=== PATIENT | male | born 1955 | race Caucasian/White ===

== ENCOUNTER → 2022-06-13 | Outpatient (CLI) | payer MEDICARE, SELFPAY ==
[2022-06-13 14:43] LABS: Absolute Lymphocyte Count 2.17 X10^3/uL (0.83-4.51); Absolute Neutrophil Count 3.8 X10^3/uL (2.0-7.7); Basophil# 0.04 X10^3/uL; Basophil% 0.6 % (0-1); Eosinophils% 4.3 % (0-5); Hematocrit 42.8 % (40-54); Hemoglobin 14.3 g/dL (13.0-16.5); Lymphocyte # 2.17 X10^3/ul (0.83-4.51); Lymphocyte % 31.2 % (19-41); Mean Corp Hgb Conc 33.4 g/dL (32-36); Mean Corpuscular Hgb 30.4 pg (27.0-32.0); Mean Corpuscular Volume 91.1 fL (80-94); Mean Platelet Vol. 9.1 fl (6.2-12.0); Monocyte% 8.6 % (0-10); NRBC Flagged by Analyzer 0 % (0-5); Neutrophil # 3.82 X10^3/uL (2.7-7.7); Neutrophil % 54.9 % (47-70); Platelet Count 238 K/mm3 (150-450); RBC Distribution Width CV 12.1 % (11.6-14.6); RBC Distribution Width SD 40.7 fl (35.1-43.9)
[2022-06-13 14:54] LABS: Anion Gap 4 (5-15); BUN 20 mg/dL (7-18); Calcium,Total 9.3 mg/dL (8.5-10.1); Chloride 106 mmol/L (98-107); Creatinine, Serum 0.87 mg/dL (0.70-1.30); EST Glomerular Filtration Rate 93 mL/min (>60); Est Glom Filt Rate - Afr Amer 112 mL/min (>60); Glucose 94 mg/dL (74-106); Sodium Level 140 mmol/L (136-145)
== END | disposition home or self-care (01) ==
PROVIDERS: Referring Provider Surgery; Visit Provider Surgery
DX: Z01.818 Encounter for other preprocedural examination (principal); K46.9 Unspecified abdominal hernia without obstruction or gangrene
CPT/HCPCS: 36415; 80048; 85025

== ENCOUNTER 2022-07-13 05:44 | Day surgery (SDC) | payer MEDICARE, SELFPAY ==
[2022-07-13] VITALS (11 sets, daily range): BP systolic 109–153; BP diastolic 55–77; PULSE 64–85; RESP 16–18; TEMP 36.2–36.6; O2SAT 87–99; BMI 27.0
--- NOTE | 2022-07-13 05:55 | EKG12_ITS ---
Test Reason : PRE OP Blood Pressure : / mmHG Vent. Rate : 066 BPM Atrial Rate : 066 BPM P-R Int : 110 ms QRS Dur : 094 ms QT Int : 400 ms P-R-T Axes : 027 034 046 degrees QTc Int : 419 ms Sinus rhythm with short FL Otherwise normal ECG No previous ECGs available Confirmed by NIXON JOYA, MICKEY ([id number]), offline editor CHINTAN ARNOLD ([id number]) on 07/17/2022 9:24:10 AM Referred By: Nathanael Khalil Confirmed By:MICKEY ALICEA MD
[2022-07-13] MEDS: Lactated Ringers 1,000 ML 15 ML IV (06:36)
--- NOTE | 2022-07-13 07:22 | PCM.HP.BLA ---
History and Physical Date of Admission: 07/13/22 Date of Service:? 06/13/22 MR#: [id number] Acct: [id number] Name:NILS HALL Rep #: [id number] : 1955 ? ? Provider: Dr. Nathanael Khalil MD Age/Sex:? 66/M ? ? Location: [facility] Status: Signed Intake Vital Signs ? 06/13/2312:25 Height 6 ft Weight: 198 lb 6 oz BMI 26.9 BP 134/74 H Blood Pressure Location Rt brachial Position Sitting Respiration 17 Pulse 65 Pulse Source Monitor Temp 97.5 F L Temp Source Oral Pulse Oximetry (%) 98 Oxygen Delivery Method room air Intake Visit Reasons:?Hernia Chief Complaint: hernia Is patient in pain?: No Allergies diazepam [From Valium] Allergy (Severe, Verified 06/13/22 13:32) Anaphylaxisnaproxen [From Naprosyn] Allergy (Mild, Verified 06/13/22 13:32) Abd cramps/diarrheaamoxicillin Allergy (Intermediate, Uncoded 06/13/22 13:32) Rashdarvocet Allergy (Mild, Uncoded 06/13/22 13:32) Nausea/Vom/Diarrheapercocet Allergy (Mild, Uncoded 06/13/22 13:32) Nausea/Vom/Diarrhea Medications NK? 06/13/22 [History Confirmed 06/13/22] PFSH Medical History?(Updated 06/13/22 @ 20:[address] Nathanael Khalli MD) Pre-op testing Social History?(Updated 06/13/22 @ 13:25 by Negin Vo) Smoking Status:? Never smoker alcohol intake:? current substance use type:? does not use HPI HPI HPI: Patient is a 66-year-old male who presents for umbilical hernia.? Patient is known to me through recent exposure at our informational hernia clinic on 05/18/2022.? This finding was first noticed by patient a couple of years ago.? Patient is able to recall how this occurred and states that he was prying up some decking when this first occurred.? His primary complaint with this issue is pain which he reports comes and goes.? He has taken precautions with lifting and wears a wrap.? He states the last time he had significant pain was following our exam together in May when he had a couple of days of ongoing discomfort until the pain gradually dissipated. Patient has no personal history of smoking.? [Patient has/has no] personal history of recurrent cutaneous infections including staph. 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 He states that he is eager to be underway with a repair as his work picks up in August and he has some downtime now. Pertinent surgical history includes: An appendectomy in 1970 Patient has no primary care provider. ROS General General: No weight change, appetite, fatigue, colon cancer, breast cancer or weakness HEENT HEENT: No difficulty swallowing, eye injury, eye surgery, swollen glands or hoarseness Endo Endocrine: No thyroid disease, diabetes mellitus, thyroid cancer, Hair loss, heat intolerance or cold intolerance Skin Skin: No rash or changing moles Musc Musculoskeletal: No back problems, arthritis, rheumatoid arthritis, gout or joint pain Cardio Cardiovascular: No murmur, pacemaker, heart disease, atrial fibrillation, high blood pressure, heart attack, heart stent, palpitations, shortness of breat with exertion or chest pain Psych Psychiatric: No depression, anxiety or hearing voices Resp Respiratory: No shortness of breath, No sleep apnea, No cough, No COPD, No asthma, No emphysema and No wheezing Gastro Gastrointestinal: No abdominal pain, No nausea or vomiting, No diarrhea, No constipation, No blood in stool, No acid reflux, No hemorrhoids, No ulcers, No gallbladder problem and No black,tarry stools Josias Hematologic: No blood thinners, No blood disorders, No bleeding, No anemia and No blood clots Neuro Neurologic: No system reviewed and no additional complaints, except as documented, No as per HPI, No abnormal gait, No abnormal hearing, No abnormal movements, No abnormal speech, No behavioral changes, No burning sensations, No confusion, No convulsions, No disequilibrium, No dizziness, No localized weakness, No frequent falls, No headache(s), No lack of coordination, No loss of vision, No memory loss, No numbness, No other visual disturbances, No radicular pain, No restless legs, No sensory deficit, No syncope, No tingling, No tremor(s), No weakness and No other Exam Const General: cooperative Orientation: alert, awake and oriented x3 Resp Effort & Inspection: normal respiratory effort GI Other: Normal habitus, well-healed scar right lower quadrant, nondistended.? Soft and nontender to palpation x4 quadrants.? Visible umbilical herniation.? When palpated there is tenderness and evidence of a chronically incarcerated tuft of omental fat.? I am not able to easily reduce this and patient expresses significant discomfort when traction is applied. Assessment and Plan Assessment and Plan (1) Hernia: (2) Umbilical hernia: ?Status:?Acute ?Comment: Patient is a 66-year-old, reasonably healthy, male who presents for surgical consultation related to a umbilical hernia.? He notes that this hernia has caused him discomfort over the past couple of years since he first developed it.? 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 I have discussed the relevant anatomy of this issue as well as offered him open repair with mesh versus minimally invasive repair with mesh.? He states that he wishes to have the best repair available.? I suggested to him then that we proceed with a minimally invasive repair as this would allow me to use a larger piece of mesh.? However, I do caution him that I would require no less than 5 weeks of lifting restrictions postoperatively to ensure good incorporation of this mesh.? I detailed how activity going against these restrictions can jeopardize this incorporation.? Patient expresses understanding of this information.? We will also need to obtain basic preoperative labs and testing given that patient has had limited medical contact to this point. ?Plan: ? Tentatively plan for robot-assisted umbilical hernia repair with mesh at first mutually agreeable date ? Preoperative labs ? Preoperative chest x-ray and EKG I have examined the patient and the H&P has been reviewed. There are no clinical changes since date of exam. To proceed to operative suite for planned robot-assisted umbilical hernia repair with mesh. Post procedure expectations were reviewed with patient and his spouse.
[2022-07-13] MEDS: Clindamycin 900 MG/50 ML BAG 75 MG IV (07:36)
--- NOTE | 2022-07-13 10:30 | OP.PCM_ITS ---
Report of Operation Date of Procedure: 07/13/22 Pre-Operative Diagnosis: Umbilical hernia Post-Operative Diagnosis: 1 cm umbilical hernia with chronically incarcerated fat Surgery/Procedure Performed:: Robot-assisted transabdominal preperitoneal closure of umbilical hernia with Ventralight mesh placement Description of Surgical Findings:: ? Chronically incarcerated (with fat) umbilical hernia ? Very attenuated peritoneal layer resulting in peritoneal rents during dissection ?Median umbilical fold extending to the umbilicus likely representing remnant of umbilical vein Surgeon: Nathanael Khalil head of music: Jaydon Varghese Type of Anesthesia: General/Supplemental Anesthesiologist: Davey Zamarripa Specimen's removed: NA Drains: NA Estimated Blood Loss (mL): 20 Description of Procedure: After appropriate identification in the preoperative holding area, the patient was brought to the operating room suite where the was positioned supine the operating table. Preoperative antibiotics were administered with 900 mg clinda mycin. Patient was then induced with a general anesthetic. Patient's abdomen was prepped and draped in the usual sterile fashion. A formal timeout followed to confirm patient and procedure. Procedure was begun with a Veress entry at Valdez's point. Once the set point pressure of 12 mmHg was reached, this Veress needle was exchanged for an optical trocar and an optical entry was made in this location. Laparoscopic investigation revealed no inadvertent injury to the viscera below. 2 additional 8 mm robotic trochars were placed along the abdominal wall laterally taking care to avoid the bony prominences of the costal margin and the ASIS. Local anesthetic preceded each port placement under laparoscopic visualization. The robot was then brought in and docked in standard fashion. Robotically a peritoneal flap was raised approximately at the lateral edge of the rectus where the patient's preperitoneal fat layer was clearly visible and was carried away towards the contralateral abdominal wall. Great care was taken to lower the peritoneum off of the posterior rectus sheath and avoid any rents in the peritoneal flap. Unfortunately despite this care a rent was created with dissection just inferior to the falciform ligament where the peritoneal layer was especially attenuated. This I continued dissection and perforating vessels were sealed with bipolar energy to maintain hemostasis as this flap creation proceeded. I then addressed the hernia directly by opening the scar tissue about the hernia sac and carefully applying manual traction downward until the chronically incarcerated fat from the hernia was fully reduced. The flap was further dissected laterally until it appeared we had adequate width. The hernia defect was measured at just over 1 cm in diameter and closed with a #1 stratafix suture by running the fascial defect closed and then running the suture back upon itself. Next a 10 x 15 noted ventral light mesh selected and was trimmed to a size of 8 x 6 cm for 3 cm overlap widthwise and 4 cm overlap lengthwise. It was introduced into the peritoneum and a 2-0 V- Loc suture was used to chandelier the mesh. This V-Loc suture was then run towards the operating side of the mesh and then used to circumferentially sew the mesh to the anterior abdominal wall. A 3-0 V-Loc suture was then used to peritoneal flap. I examined the rents in the peritoneum and assess whether they would be possible to closed with Vicryl, but they proved to be under exceptional tension and were at risk of further tearing. In lieu of doing this further coverage, I elected to create a pedicled flap with the falciform ligament and attempted to cover over the area of greatest defect by tacking this to the peritoneal lining using 2-0 Vicryl fashion. After the suture material was removed and accounted for, pneumoperitoneum was released. The robot was then undocked and the trocars were removed. Additional local anesthetic was instilled and the port sites were closed with interrupted 4-0 Monocryl in subcuticular fashion. Steri-Strips and OpSite dressings were applied. Patient was transferred to PACU for ongoing care. Grafts/Implants Used: Ventralight ST reference #[id number]. Lot [id number] expiration 09/29/2023 Complications None Admit VTE Documentation VTE Present on Admission: Yes VTE Mechan Device Prophylaxis: SCD's
--- NOTE | 2022-07-13 10:45 | DCINST_ITS ---
Discharge Instructions Diet Discharge Diet: No restrictions Activity Discharge Activity: May Not Drive (While taking narcotic pain medication) and May Shower May shower in (days): 2 Ice area for (Minutes): 20 Lifting Restrictions: No lifting greater than 10 pounds for the next 5 weeks Dressing / Incision Call your doctor if your incision/area has: Continuous Slow Oozing, Increased Pain/ Swelling, Increased Redness, Foul Smelling Discharge and Swelling at the incision site Call your doctor if you observe: Fever of 101 or Higher Change Dressing in: 2 days (Please leave Steri-Strips intact until they fall off spontaneously or are taken off at your follow-up visit) Remove Dressing in: 2 days Cleanse incision/area with: Soap & Water and Keep Dressing Clean & Dry Follow Up Care Please Follow Up With: Nathanael Khalil MD When: 1 week postop Test Results: Test results from this visit will be discussed in further detail at your follow- up appointment, if applicable. Discharge Plan Admission Primary Reason for Your Visit: Repair of umbilical hernia Attending Provider: Nathanael Khalil Primary Care Provider: Care Physician,Myla Primary Discharge Orders/Prescriptions Prescriptions: New oxycodone 5 mg tablet 5 mg PO Q6H PRN (Reason: pain) 3 Days Qty: 10 0RF Referrals / Follow Up: Care Physician,Myla Primary [Primary Care Provider] - Disposition Disposition (needs filled in before D/C Order can be placed): Home, Self Care
[2022-07-13] MEDS: Ketorolac 30 MG/ML Syringe IV (12:19)
--- NOTE | 2022-07-13 15:20 | SUR.PHASEII ---
Pt aware of new orders from Dr Khalil r/t inability to urinate, pt wants to attempt to void one more time before straight cath. Pt up to BR
[2022-07-13] MEDS: Tamsulosin HCl 0.4 MG Capsule PO (15:45)
--- NOTE | 2022-07-13 16:04 | SUR.PHASEII ---
Pt straight cath for 500cc clear yellow urine, pt lamar well.
== END 2022-07-13 16:57 | disposition home or self-care (01) ==
LOC: SDC 05:46 → AC 05:48
PROVIDERS: Referring Provider Surgery; Visit Provider Surgery
PROC: (CPT 49592; principal; 2022-07-13 07:10)
DX: K42.0 Umbilical hernia with obstruction, without gangrene (principal); K91.71 Accidental puncture and laceration of a digestive system organ or structure during a digestive system procedure
CPT/HCPCS: 49592; S2900; 49999; 00832; 93005; J7120; C1781; J2405

== ENCOUNTER 2024-02-19 18:58 | Inpatient (IN) | payer MEDICARE, SELFPAY ==
[2024-02-19 18:59] VITALS: BP 155/92; PULSE 58; RESP 20; TEMP 36.8; O2SAT 99; BMI 27.2
[2024-02-19 21:56] LABS: Mucous, Urine 0 SEEN /hpf (<or=2+); Squamous Epithelial Cells - UA 0 SEEN /hpf (0-5)
[2024-02-19 21:57] LABS: Color, Urine Yellow (Yellow); Glucose, Dipstick Normal (Normal); Ketone-Dipstick Negative (Negative); Leukocyte Esterase-Dipstick 500 /ul (Negative); Nitrite-Dipstick Negative (Negative); Occult Blood-Urine 250 /ul (Negative); Protein-Dipstick 30 mg/dl (Negative); Urine Bilirubin Dipstick Negative (Negative); Urine Clarity Sl. Cloudy (Clear); Urine Urobilinogen Normal (Normal)
[2024-02-19 22:00] VITALS: BP 147/72; PULSE 89; RESP 16; O2SAT 98
--- NOTE | 2024-02-19 22:02 | CT_ITS ---
INDICATION: Pain EXAMINATION: CT ABDOMEN AND PELVIS WITHOUT CONTRAST - CT Abdomen And Pelvis W/O Contrast Injection TECHNIQUE: Helically acquired images were obtained of the abdomen and pelvis without oral or IV contrast. A radiation dose optimization technique was used for this scan. IV Contrast dosage and agent: None. Oral contrast: None. RADIATION DOSAGE (If Supplied By Facility): CTDIvol = ( 9.45 ) mGy, DLP = ( 559.80 ) mGycm COMPARISON: No relevant prior comparison study available FINDINGS: LOWER CHEST: Lung bases are clear. No cardiomegaly or pericardial effusion. Coronary artery calcifications are seen. LIVER: The liver is normal in size, shape, and attenuation. No focal mass. GALLBLADDER AND BILIARY TREE: The gallbladder is normally distended. No gallstones. No gallbladder wall thickening or edema. No intra- or extrahepatic biliary ductal dilation. PANCREAS: No focal cystic or solid mass. SPLEEN: Normal size without focal cystic or solid mass. ADRENAL GLANDS: No nodules. KIDNEYS AND URETERS: Normal renal size and position. Mild left hydroureteronephrosis. Proximal left ureteral calculus at the L3-L4 level measures 0.7 cm. This measures 1416 Hounsfield units. The ureter is decompressed beyond this stone. No right-sided calculi. 0.3 cm right mid to lower pole calculus. Simple bilateral renal cysts. No specific follow-up recommended. PERITONEUM: No ascites or free air. No other fluid collection. BOWEL: The stomach is unremarkable. Normal caliber small bowel. No obstruction. No colonic wall thickening or inflammatory changes. Appendix not seen. LYMPH NODES: No enlarged mesenteric or retroperitoneal lymph nodes. VESSELS: Aorta is non-dilated. Mild atherosclerotic calcifications. URINARY BLADDER: Normally distended bladder with posterior bladder wall diverticulum. This contains multiple calculi. There is wall thickening in the region of the diverticulum with mild adjacent inflammation. REPRODUCTIVE ORGANS: No pelvic masses. ABDOMINAL WALL: Small fat-containing right inguinal hernia. BONES: No acute or suspicious osseous abnormality. Mild degenerative changes of the spine. Mild degenerative change of both hips. CT/Abdomen/Pelvis without Cont IMPRESSION: Mild left hydroureteronephrosis with a 0.7 cm proximal ureteral calculus. Nonobstructing right renal calculus. Posterior bladder wall diverticulum containing multiple calculi. Bladder wall thickening with adjacent inflammation. This could represent infection. Electronically Signed: Sohan Scott MD at 22:59 EDT ,
--- NOTE | 2024-02-19 22:02 | ED.VIS.GI ---
HPI HPI - GI History of Present Illness Chief Complaint: Flank Pain Detail of Chief Complaint: Left flank pain since 3:00 today. Informant: patient and spouse/S.O. Abdominal Pain/Flank Pain Onset: Today Context: Gradual Onset Timing: Continuous Quality: Sharp Location: Left Flank Current Severity: Moderate Maximum Severity: Moderate Worsened by: Nothing Relieved by: Nothing Nausea/Vomiting/Emesis GI Symptom: Positive for Nausea Onset: Today Diarrhea/Melena/Hematochezia GI Symptom: Negative for Diarrhea or Melena Associated Symptoms Associated Symptoms: Negative for Dysuria or Frequency Narrative Narrative: 68-year-old male history of kidney stones complaining of left flank pain since around 3:00 today. Associated nausea. No vomiting or diarrhea. No fever. Mild hematuria. Able to urinate. Feels like prior kidney stones. Prior similar symptoms: Yes Recent Illness/Hospitalization: No PFSH PFSH Medical History Wears glasses History of renal disease Non-smoker Pre-op testing Home Medications ?Medication ?Instructions ?Recorded ?Last Taken ?Type tamsulosin 0.4 mg capsule (Flomax) 0.4 mg PO DAILY #30 caps 10/02/22 Unknown Rx Allergy/AdvReac Type Severity Reaction Status Date / Time diazepam (From Valium) Allergy Severe Anaphylaxis Verified 02/19/24 18:59 amoxicillin Allergy Intermediate Rash Verified 02/19/24 18:59 acetaminophen (From AdvReac Mild Nausea/Vom/ Verified 02/19/24 18:59 Darvocet-N) Diarrhea naproxen (From Naprosyn) AdvReac Mild Abd Verified 02/19/24 18:59 cramps/diarrhea oxycodone (From Percocet) AdvReac Mild Nausea/Vom/ Verified 02/19/24 18:59 Diarrhea propoxyphene (From AdvReac Mild Nausea/Vom/ Verified 02/19/24 18:59 Darvocet-N) Diarrhea Surgical History History of umbilical hernia repair History of extraction of renal calculus History of appendectomy Social History Smoking Status: Never smoker alcohol intake: current substance use type: does not use ROS ROS ED ROS Narrative Nausea. Left flank pain. Constitutional Constitutional ED: Denies fever(s) ENT ENT ED: Denies ear pain Cardiovascular Cardiovascular: Denies chest pain Respiratory/Chest Respiratory/Chest: Denies cough Gastrointestinal Gastrointestinal: Reports abdominal pain and nausea; Denies constipation, diarrhea, melena or vomiting Genitourinary Genitourinary ED: Reports hematuria; Denies dysuria Musculoskeletal Musculoskeletal: Denies arthralgias Integumentary Denies abscess Neurologic Neurologic: Denies headache(s) Psychiatric Psychiatric: Denies anxiety Endocrine Endocrinology: Denies polydipsia Hematologic/Lymphatic Hematologic/Lymphatic: Denies easy bleeding Allergic/Immunologic Allergic/Immunologic ED: Denies mouth swelling EXAM Physical Exam Narrative Exam Narrative: 68-year-old male sitting upright in bed. Vital signs stable afebrile. at bedside. H EENT exam unremarkable. Lungs clear. Heart regular rhythm rate about 60 no murmur. Chest wall ribs nontender. Abdomen soft nontender. Moving all 4 extremities. Nontender no edema. Normal strength. Back no reproducible tenderness. Awake and alert. No focal motor deficits. Const Vital Signs: 02/19/24 18:59 02/19/24 22:00 Temperature 98.2 F Temperature Source Oral Pulse Rate 58 L 89 Respiratory Rate 20 H 16 Blood Pressure 155/92 H 147/72 H Blood Pressure Mean 113 97 Pulse Ox 99 98 Oxygen Delivery Method Room Air Room Air Positive well nourished and well developed; Negative for cachectic, contractures or unkempt General Appearance ED: well developed and NAD; Negative for unkempt, cachectic, contractures or pallor Nutritional Appearance: Negative for cachectic HEENT Reports moist mucous membranes normocephalic and atraumatic; Negative for trauma or tenderness Eyes PERRL and EOMs intact bilaterally General Eye ED: Negative for pale conjunctiva or scleral icterus Neck no lymphadenopathy, supple and no JVD General: Negative for tenderness Lymph Lymphatic: Negative for other Resp normal respiratory effort and clear to auscultation bilaterally Effort and Inspection: Negative for respiratory distress Auscultation: Negative for rales, rhonchi, wheezes or diminished lung sounds Cardio regular rate, regular rhythm, S1 normal heart sound, S2 normal heart sound and no murmurs GI non-tender, non-distended and no masses Inspection: Negative for abdominal distention Palpation: soft; Negative for tender, guarding or rebound tenderness present Back/Spine no CVA tenderness General Back: Negative for CVA tenderness Cervical Spine: Negative for cervical spine tenderness Thoracic Spine / Upper Back: Negative for thoracic spinal tenderness Lumbar Spine / Lower Back: Negative for lumbar spinal tenderness Extremity full ROM General Extremety ED: Negative for edema or tenderness General Extremity: Negative for edema Neuro CN's II-XII intact bilaterally and moves all extremities Sensorium / Orientation: alert, oriented to person, oriented to place and oriented to time Motor Exam: strength 5/5 throughout Psych mental status grossly normal and thought process normal Appearance: Negative for unkempt Attitude: No agitated Mood & Affect: Negative for depressed, anxious or tearful Skin no wounds General Skin Exam: Negative for jaundice or pallor Lesions: no lesions Rashes: no rashes Trauma: Negative for abrasion Nails: Negative for discolored MDM MDM MDM Narrative Medical decision making narrative: 68-year-old male left flank pain most likely a kidney stone versus UTI versus other etiologies. CAT scan and labs are pending. IV morphine for pain and Zofran for nausea. Repeat exam at 11:20 PM. Patient is having recurrent pain. Will give another dose of morphine, Zofran for nausea and IV Rocephin. Urine does show white cells and bacteria so treated as a possible early UTI with a urine culture. In light that he has a proximal 7 mm stone with hydro and possibly an early UTI and has had intractable pain I did speak to urology. They are willing to back up in case the patient needs surgery. I have the hospitalist on page for admission. Patient knows that currently were tight on beds and he may remain in the emergency department tonight. History & Record Review Discussion w/independent historian: Patient Additional record(s) reviewed:: Prior inpatient record, Prior outpatient record, Prior ED visit and Prior labs Lab Data Attestation: I reviewed the patient's lab results. Lab results narrative: UA shows 250 occult blood. No nitrites. 5-10 whites. 1+ bacteria. White count of 10. H&H 14 and 43. Platelets 219. Electrolytes show gap 9. BUN and creatinine 22 and 1.2. Glucose 116. Labs: Laboratory Results - last 24 hr 02/19/24 02/19/24 21:40 21:42 WBC 10.0 RBC 4.78 Hgb 14.0 Hct 43.0 MCV 90.0 MCH 29.3 MCHC 32.6 RDW Std Deviation 41.2 RDW Coeff of Curtis 12.5 Plt Count 219 MPV 9.3 Immature Gran % (Auto) 0.500 Neut % (Auto) 84.5 H Lymph % (Auto) 8.3 L [place] % (Auto) 5.9 Eos % (Auto) 0.3 Baso % (Auto) 0.5 Absolute Neuts (auto) 8.5 H Absolute Lymphs (auto) 0.83 Nucleated RBC % 0 Sodium 139 Potassium 4.1 Chloride 105 Carbon Dioxide 25.0 Anion Gap 9 BUN 22 H Creatinine 1.21 Estim Creat Clear Calc 60.50 Est GFR (MDRD) Af Amer 76 Est GFR (MDRD) Non-Af 63 BUN/Creatinine Ratio 18.2 Glucose 115 H Calcium 10.0 Urine Color Yellow Urine Clarity Sl. Cloudy Urine pH 6.0 Ur Specific [place] 1.020 Urine Protein 30 H Urine Glucose (UA) Normal Urine Ketones Negative Urine Occult Blood 250 H Urine Nitrite Negative Urine Bilirubin Negative Urine Urobilinogen Normal Ur Leukocyte Esterase 500 H Urine RBC 0-5 SEEN Urine WBC 5-10 SEEN Ur Squamous Epith Cells 0 SEEN Urine Bacteria 1+ Urine Mucus 0 SEEN Radiography Diagnostic Testing: Clinical Impression(s) from Imaging Studies Abdomen/Pelvis CT 02/19/24 22:02 IMPRESSION: Mild left hydroureteronephrosis with a 0.7 cm proximal ureteral calculus. Nonobstructing right renal calculus. Posterior bladder wall diverticulum containing multiple calculi. Bladder wall thickening with adjacent inflammation. This could represent infection. Electronically Signed: Sohan Scott MD at 22:59 EDT , Discharge Plan Triage Chief Complaint: Flank Pain ED Provider: Jaydon Serra Dx/Rx/DC Orders Clinical Impression: Acute left flank pain, Kidney stone on left side, Hydronephrosis, Acute UTI Prescriptions: No Action tamsulosin [Flomax] 0.4 mg capsule 0.4 mg PO DAILY Qty: 30 0RF Primary Care Provider: Care Physician,No Primary Referrals: Care Physician,No Primary [Primary Care Provider] - Print Language: Bhutanese Disposition Disposition: [facility]
[2024-02-19 22:08] LABS: White Blood Cells 5-10 SEEN /hpf (0-5)
[2024-02-19 22:09] LABS: Bacteria 1+ /hpf (None Seen); Red Blood Cells-Urine 0-5 SEEN /hpf (0-5)
[2024-02-19] MEDS: Ondansetron 4 MG/2 ML Vial IV ×2 (22:12→23:29)
[2024-02-19] MEDS: morphine 8 MG/ML Syringe 6 MG IV ×2 (22:12→23:30)
[2024-02-19 22:23] LABS: Absolute Lymphocyte Count 0.83 X10^3/uL (0.83-4.51); Absolute Neutrophil Count 8.5 X10^3/uL (2.0-7.7); Basophil# 0.05 X10^3/uL; Basophil% 0.5 % (0-1); Eosinophil# 0.03 X10^3/uL; Eosinophils% 0.3 % (0-5); Lymphocyte # 0.83 X10^3/ul (0.83-4.51); Lymphocyte % 8.3 % (19-41); Mean Corp Hgb Conc 32.6 g/dL (32-36); Mean Corpuscular Hgb 29.3 pg (27.0-32.0); Mean Platelet Vol. 9.3 fl (6.2-12.0); Monocyte# 0.59 X10^3/uL; Monocyte% 5.9 % (0-10); NRBC Flagged by Analyzer 0 % (0-5); Neutrophil # 8.45 X10^3/uL (2.7-7.7); Neutrophil % 84.5 % (47-70); Platelet Count 219 K/mm3 (150-450); RBC Distribution Width CV 12.5 % (11.6-14.6); RBC Distribution Width SD 41.2 fl (35.1-43.9); Red Blood Count 4.78 M/mm3 (4.6-6.2)
[2024-02-19 22:37] LABS: Anion Gap 9 (5-15); BUN 22 mg/dL (7-18); BUN/Creat Ratio 18.2 RATIO (10-20); Chloride 105 mmol/L (98-107); Creatinine, Serum 1.21 mg/dL (0.70-1.30); EST Glomerular Filtration Rate 63 mL/min (>60); Est Glom Filt Rate - Afr Amer 76 mL/min (>60); Glucose 115 mg/dL (74-106); Potassium 4.1 mmol/L (3.5-5.1); Sodium Level 139 mmol/L (136-145)
[2024-02-19] MEDS: Ceftriaxone 1 GM/50 ML BAG IV (23:32)
--- NOTE | 2024-02-19 23:43 | HP.PCM.HOS_ITS ---
HPI - General General Date of Admission: 02/19/24 Date of Service: 02/19/24 Chief Complaint: Left flank pain HPI Narrative The patient is a 68 y/o M w/ PMHx: BPH, History nephrolithiasis, CKD stage I per prior GFR trending who presents to the [facility] ED on 02/19/24 with history of onset of left flank discomfort starting at 3 PM on day of presentation noted to be sharp in nature gradually worsening and continuous with associated nausea without emesis with no fevers or chills with ability to urinate but mild hematuria noted similar to his previous presentations with kidney stones prompting eventual ED evaluation. In the ED patient is reporting discomfort 10 out of 10 and following most recent pain medication reports 7/10 flank discomfort. He notes he cannot lay down because of his discomfort. Workup in the ED included T98.2, heart rate 58, BP 155/92, respiratory rate 20, 99% on room air, CBC with WBC 10, hemoglobin 14, platelets 219 with left shift, BMP with BUN/creatinine 22/1.21, GFR 63, glucose 115, urinalysis noted be cloudy, specific remedy 1.020, protein 30, occult blood 250, negative nitrite, leukocyte esterase 500 with urine WBCs 5-10 with 1+ urine bacteria, urine culture pending per ED, CT abdomen and pelvis without contrast with an mild left hydroureteronephrosis with a 0.7 cm proximal ureteral calculus, nonobstructing right renal calculus, posterior bladder wall diverticulum containing multiple calculi, bladder wall thickening with adjacent inflammation. In the ED patient is start IV Rocephin 1 g x 1, Zofran 4 mg IV x 2 as well as morphine 6 mg IV x 2. ED did discuss case with urology and given size they are uncertain if he will need any intervention but amenable to follow. [facility] Medical History BPH (benign prostatic hyperplasia) CKD (chronic kidney disease), stage I History of nephrolithiasis Wears glasses Non-smoker Allergy/AdvReac Type Severity Reaction Status Date / Time diazepam (From Valium) Allergy Severe Anaphylaxis Verified 02/19/24 18:59 amoxicillin Allergy Intermediate Rash Verified 02/19/24 18:59 acetaminophen (From AdvReac Mild Nausea/Vom/ Verified 02/19/24 18:59 Darvocet-N) Diarrhea naproxen (From Naprosyn) AdvReac Mild Abd Verified 02/19/24 18:59 cramps/diarrhea oxycodone (From Percocet) AdvReac Mild Nausea/Vom/ Verified 02/19/24 18:59 Diarrhea propoxyphene (From AdvReac Mild Nausea/Vom/ Verified 02/19/24 18:59 Darvocet-N) Diarrhea Family History (Updated 02/20/24 @ 00:[address] Nafisa Sullivan MD) Mother No problems noted. Father No problems noted. no significant family history (Patient denies any marked maternal or paternal family history including HD, DM, CA.) Surgical History History of umbilical hernia repair History of extraction of renal calculus History of appendectomy Social History (Updated 02/20/24 @ 00:[address] Nafisa Sullivan MD) household members: spouse Smoking Status: Never smoker alcohol intake: current alcohol intake frequency: holidays/special occasions only substance use type: does not use ROS ROS Narrative Admission Review of Systems: CONSTITUTIONAL: No weight loss, fever, chills, + weakness or fatigue. HEENT: Eyes: No visual loss, blurred vision, double vision or yellow sclerae. Ears, Nose, Throat: No hearing loss, sneezing, congestion, runny nose or sore throat. SKIN: No rash or itching, lesions, wounds. CARDIOVASCULAR: No chest pain, chest pressure or chest discomfort, palpitations, edema, orthopnea, syncopal events. RESPIRATORY: No shortness of breath, cough or sputum, wheezing, hemoptysis. GASTROINTESTINAL: + Left flank discomfort, nausea without emesis. No diarrhea, abdominal pain, melena, BRBPR. GENITOURINARY: + Left flank discomfort and hematuria. No dysuria, frequency, urgency or retention. NEUROLOGICAL: No headache, dizziness, syncope, paralysis, ataxia, numbness or tingling in the extremities, focal weakness, change in bowel or bladder control, seizure. MUSCULOSKELETAL: + muscle, back pain, joint pain or stiffness. HEMATOLOGIC: No anemia, bleeding or bruising. LYMPHATICS: No enlarged nodes. No history of splenectomy. PSYCHIATRIC: No history of depression or anxiety. ENDOCRINOLOGIC: + reports of sweating, cold or heat intolerance. No polyuria or polydipsia. ALLERGIES: No history of asthma, hives, eczema or rhinitis. Vital Signs Vital Signs Vital Signs: 02/19/24 18:59 02/19/24 22:00 Temperature 98.2 F Temperature Source Oral Pulse Rate 58 L 89 Respiratory Rate 20 H 16 Blood Pressure 155/92 H 147/72 H Blood Pressure Mean 113 97 Pulse Ox 99 98 Oxygen Delivery Method Room Air Room Air Weight Weight: 195 lb 6.4 oz Body Mass Index (BMI) 27.2 Physical Exam Narrative Physical Examination: General: Awake, alert, oriented x 3 and cooperative, seated upright at the ED bedside, notes he cannot even lay back because of the pain, flank discomfort is improved now down to 7 out of 10 in severity. Skin: Flushed color, normal turgor, no icterus, no cyanosis. HEENT: AT/NC, EOMI, PERRLA, moderately dry MM, no carotid bruits or JVD noted. Lungs: Mildly diminished, greater bases, mildly increased respiratory rate but no distress, no rales, ronchi or wheezing. Heart: Regular rate and rhythm; no gallop, rub audible. Abdomen: Soft, no discomfort to abdominal palpation, ongoing discomfort with palpation of the left flank however, nondistended, mildly hyperactive BS, no appreciated HSM but difficult evaluation as patient extremely reticent to lay flat. Extremities: No cyanosis, clubbing, or edema. Neurological: Patient awake, alert, oriented as noted, cognitive function intact; pupils equally reactive to light and accommodation, cranial nerves grossly y normal, moving all 4 extremities, no focal deficits, strength moderately to severely globally decreased secondary to acute presentation. Psychiatric: Affect appears fatigued, uncomfortable no acute evidence of depressive or anxiety feelings. Results Lab / Micro Data 02/19/24 21:40 02/19/24 21:40 Labs: Laboratory Results - last 24 hr 02/19/24 21:40: WBC 10.0, RBC 4.78, Hgb 14.0, Hct 43.0, MCV 90.0, MCH 29.3, MCHC 32.6, RDW Std Deviation 41.2, RDW Coeff of Curtis 12.5, Plt Count 219, MPV 9.3, Immature Gran % (Auto) 0.500, Neut % (Auto) 84.5 H, Lymph % (Auto) 8.3 L, [place] % (Auto) 5.9, Eos % (Auto) 0.3, Baso % (Auto) 0.5, Absolute Neuts (auto) 8.5 H, Absolute Lymphs (auto) 0.83, Nucleated RBC % 0, Sodium 139, Potassium 4.1, Chloride 105, Carbon Dioxide 25.0, Anion Gap 9, BUN 22 H, Creatinine 1.21, Estim Creat Clear Calc 60.50, Est GFR (MDRD) Af Amer 76, Est GFR (MDRD) Non-Af 63, BUN/Creatinine Ratio 18.2, Glucose 115 H, Calcium 10.0 02/19/24 21:42: Urine Color Yellow, Urine Clarity Sl. Cloudy, Urine pH 6.0, Ur Specific [place] 1.020, Urine Protein 30 H, Urine Glucose (UA) Normal, Urine Ketones Negative, Urine Occult Blood 250 H, Urine Nitrite Negative, Urine Bilirubin Negative, Urine Urobilinogen Normal, Ur Leukocyte Esterase 500 H, Urine RBC 0-5 SEEN, Urine WBC 5-10 SEEN, Ur Squamous Epith Cells 0 SEEN, Urine Bacteria 1+, Urine Mucus 0 SEEN Imaging Radiology Impression Abdomen/Pelvis CT 02/19/24 22:02 IMPRESSION: Mild left hydroureteronephrosis with a 0.7 cm proximal ureteral calculus. Nonobstructing right renal calculus. Posterior bladder wall diverticulum containing multiple calculi. Bladder wall thickening with adjacent inflammation. This could represent infection. Electronically Signed: Sohan Scott MD at 22:59 EDT Reading Location ID and State: [address] [place] [address] Tel , Service support , Assessment & Plan Assessment/Plan (1) Hydronephrosis: (2) Kidney stone on left side: (3) Acute UTI: PLAN: Plan The patient is a 68 y/o M w/ PMHx: BPH, History nephrolithiasis, CKD stage I per prior GFR trending who presents to the [facility] ED on 02/19/24 with history of onset of left flank discomfort starting at 3 PM on day of presentation noted to be sharp in nature gradually worsening and continuous with associated nausea without emesis with no fevers or chills with ability to urinate but mild hematuria noted similar to his previous presentations with kidney stones prompting eventual ED evaluation. #1. Acute Flank Pain secondary to Acute Nephrolithiasis with noted mild left hydroureteronephrosis with 0.7 cm proximal ureteral calculus, Acute complicated UTI complicated by also noted bladder wall diverticulum: Will admit to [facility], maintain on IV fluids, maintain on IV Rocephin antiobitic therapy, in case of operative intervention needs will maintain n.p.o. status after midnight, place on Famotidine, will have PRN oral and IV pain regimen; however, if not effective may consider transition to Dilaudid OUTSOLE COMPRESSOR, PRN anti-emetics, monitor I&Os, will continue urology initiated consultation is given size do suspect likely intervention may be needed. #2. Acute renal insufficiency/elevated creatinine on Chronic Kidney Disease Stage I per prior GFR trending although this was remote and in 2022 thus could have advanced since then but suspect renal insufficiency associate with presentation #1: Admission BUN/Cr 22/1.21, GFR 63, baseline renal function 0.87 with previous GFR 93 consistent with CKD stage I, repeat BMP in AM. #3. Elevated BP without hypertensive diagnosis: Elevated BP in the ED, likely pain related, continue to monitor and add regimen if appropriate, IV hydralazine PRN in interim. #4. BPH: We will continue patient on Flomax regimen. #5. DVT prophylaxis: SCDs. #6. CODE status: Patient does not have healthcare power of senior production manager or living will in place but notes his would be his medical decision-maker if necessary. Discussed CODE status at length including difference between FULL code, DNR-CCA and DNR-CC status. Following discussions about the differences in these status, requested DNR CCA, no intubation which was discussed several times and confirmed given his age and no marked medical history but he was adamant. He is willing to have intubation for procedures. Advanced Care Planning Face to Face Time: 16 minutes. Charges/Coding Visit Charges Inpatient E&M: 17819 Init Hosp L3 Procedures Hospitalists Procedures: 22146 Advncd Care Plan 30 Min
[2024-02-20] VITALS (19 sets, daily range): BP systolic 114–159; BP diastolic 65–84; PULSE 59–91; RESP 12–20; TEMP 36.6–37.4; O2SAT 90–100; BMI 27.3
[2024-02-20] MEDS: HYDROmorphone 0.5 MG/0.5 ML SYRINGE IV ×6 (00:07→20:56)
[2024-02-20] MEDS: Ondansetron 4 MG/2 ML Vial IV ×3 (00:44→15:37)
[2024-02-20] MEDS: 0.9% Normal Saline (1000mL) 1,000 ML 100 ML IV (01:34)
[2024-02-20] MEDS: proCHLORPERazine 10 MG/2 ML Vial 5 MG IV (01:34)
[2024-02-20] MEDS: Famotidine 20 MG Tablet PO ×2 (01:51→20:59)
--- NOTE | 2024-02-20 07:23 | PCM.CONS.U ---
Assessment & Plan Assessment/Plan (1) Acute UTI: (2) Hydronephrosis: (3) Kidney stone on left side: PLAN: N.p.o., plan for surgery today for cystoscopy left stent placement HPI Consult Data Date of Consult: 02/20/24 HPI Narrative HPI Narrative: NILS VERMA, is a 68 M who presents with a large stone in the proximal left ureter currently is in the emergency room waiting for admission bed, he has an active infection so plan today is just to admit him for cystoscopy and stent placement on the left side. Will maintain n.p.o. status PFSH Medical History BPH (benign prostatic hyperplasia) CKD (chronic kidney disease), stage I History of nephrolithiasis Wears glasses Non-smoker Allergy/AdvReac Type Severity Reaction Status Date / Time diazepam (From Valium) Allergy Severe Anaphylaxis Verified 02/19/24 18:59 amoxicillin Allergy Intermediate Rash Verified 02/19/24 18:59 acetaminophen (From AdvReac Mild Nausea/Vom/ Verified 02/19/24 18:59 Darvocet-N) Diarrhea naproxen (From Naprosyn) AdvReac Mild Abd Verified 02/19/24 18:59 cramps/diarrhea oxycodone (From Percocet) AdvReac Mild Nausea/Vom/ Verified 02/19/24 18:59 Diarrhea propoxyphene (From AdvReac Mild Nausea/Vom/ Verified 02/19/24 18:59 Darvocet-N) Diarrhea Family History Mother No problems noted. Father No problems noted. Family History no significant family his Surgical History History of umbilical hernia repair History of extraction of renal calculus History of appendectomy Social History household members: spouse Smoking Status: Never smoker alcohol intake: current alcohol intake frequency: holidays/special occasions only substance use type: does not use ROS Constitutional Constitutional: Denies chills, fever(s) or malaise Eyes Eyes: Denies blurry vision or change in vision ENT HEENT: Reports none Cardiovascular Cardiovascular: Denies chest pain or palpitations Respiratory/Chest Respiratory/Chest: Denies cough or shortness of breath with exertion Gastrointestinal Gastrointestinal: Denies abdominal pain, constipation or diarrhea Musculoskeletal Musculoskeletal: Denies back pain, joint stiffness or joint swelling Integumentary Integumentary: Denies dry skin, jaundice, lesions or rash Neurologic Neurologic: Denies confusion, syncope or weakness Psychiatric Psychiatric: Reports none; Denies anxiety or depression Endocrine Endocrinology: Denies excessive sweating, fatigue or flushing Hematologic/Lymphatic Hematologic/Lymphatic: Denies anemia, easy bleeding or easy bruising Physical Exam Const alert and oriented x3 General Appearance: cooperative HEENT normocephalic and head/scalp atraumatic Eyes PERRL and EOMs intact bilaterally Neck supple, no JVD and no carotid bruits Resp normal respiratory effort, normal air movement and clear to auscultation bilaterally Cardio regular rate and no murmurs GI normal to inspection, nondistended, normoactive bowel sounds and soft to palpation Extremity normal capillary refill General Extremity: no tenderness to palpation of joints or extremities; Negative for edema Skin no rashes or lesions noted and no wounds General Skin Exam: no breakdown Neuro CN's II-XII intact bilaterally Psych affect normal Appearance: appropriate Lab / Micro Data 02/19/24 21:40 02/19/24 21:40 Labs: Laboratory Results - last 24 hr 02/19/24 21:40: WBC 10.0, RBC 4.78, Hgb 14.0, Hct 43.0, MCV 90.0, MCH 29.3, MCHC 32.6, RDW Std Deviation 41.2, RDW Coeff of Curtis 12.5, Plt Count 219, MPV 9.3, Immature Gran % (Auto) 0.500, Neut % (Auto) 84.5 H, Lymph % (Auto) 8.3 L, [place] % (Auto) 5.9, Eos % (Auto) 0.3, Baso % (Auto) 0.5, Absolute Neuts (auto) 8.5 H, Absolute Lymphs (auto) 0.83, Nucleated RBC % 0, Sodium 139, Potassium 4.1, Chloride 105, Carbon Dioxide 25.0, Anion Gap 9, BUN 22 H, Creatinine 1.21, Estim Creat Clear Calc 60.50, Est GFR (MDRD) Af Amer 76, Est GFR (MDRD) Non-Af 63, BUN/Creatinine Ratio 18.2, Glucose 115 H, Calcium 10.0 02/19/24 21:42: Urine Color Yellow, Urine Clarity Sl. Cloudy, Urine pH 6.0, Ur Specific [place] 1.020, Urine Protein 30 H, Urine Glucose (UA) Normal, Urine Ketones Negative, Urine Occult Blood 250 H, Urine Nitrite Negative, Urine Bilirubin Negative, Urine Urobilinogen Normal, Ur Leukocyte Esterase 500 H, Urine RBC 0-5 SEEN, Urine WBC 5-10 SEEN, Ur Squamous Epith Cells 0 SEEN, Urine Bacteria 1+, Urine Mucus 0 SEEN Imaging Radiology Impression Abdomen/Pelvis CT 02/19/24 22:02 IMPRESSION: Mild left hydroureteronephrosis with a 0.7 cm proximal ureteral calculus. Nonobstructing right renal calculus. Posterior bladder wall diverticulum containing multiple calculi. Bladder wall thickening with adjacent inflammation. This could represent infection. Electronically Signed: Sohan Scott MD at 22:59 EDT Reading Location ID and State: [facility] / [place] Tel , Service support ,
[2024-02-20 09:19] LABS: Absolute Lymphocyte Count 0.62 X10^3/uL (0.83-4.51); Absolute Neutrophil Count 9.7 X10^3/uL (2.0-7.7); Basophil# 0.04 X10^3/uL; Basophil% 0.4 % (0-1); Eosinophil# 0.01 X10^3/uL; Eosinophils% 0.1 % (0-5); Hematocrit 41.9 % (40-54); Hemoglobin 13.7 g/dL (13.0-16.5); Lymphocyte # 0.62 X10^3/ul (0.83-4.51); Lymphocyte % 5.5 % (19-41); Mean Corp Hgb Conc 32.7 g/dL (32-36); Mean Corpuscular Hgb 29.8 pg (27.0-32.0); Mean Corpuscular Volume 91.3 fL (80-94); Mean Platelet Vol. 9.4 fl (6.2-12.0); Monocyte# 0.89 X10^3/uL; Monocyte% 7.8 % (0-10); NRBC Flagged by Analyzer 0 % (0-5); Neutrophil # 9.73 X10^3/uL (2.7-7.7); Neutrophil % 85.6 % (47-70); Platelet Count 194 K/mm3 (150-450); RBC Distribution Width CV 12.7 % (11.6-14.6); RBC Distribution Width SD 42.5 fl (35.1-43.9); Red Blood Count 4.59 M/mm3 (4.6-6.2); White Blood Count 11.4 K/mm3 (4.4-11.0)
[2024-02-20 10:02] LABS: ALB/GLOB Ratio 1.2 RATIO (0.9-2.4); AST(SGOT) 24 U/L (15-37); Alanine Aminotransfer ALT/SGPT 29 U/L (16-61); Albumin, Serum 3.6 g/dL (3.2-5.0); Alkaline Phosphatase 50 U/L (45-117); Anion Gap 7 (5-15); BUN 22 mg/dL (7-18); BUN/Creat Ratio 16.8 RATIO (10-20); Calcium,Total 9.7 mg/dL (8.5-10.1); Chloride 107 mmol/L (98-107); Creatinine, Serum 1.31 mg/dL (0.70-1.30); EST Glomerular Filtration Rate 58 mL/min (>60); Est Glom Filt Rate - Afr Amer 70 mL/min (>60); Estimated Creatinine Clearance 58.81 ml/min; Glucose 125 mg/dL (74-106); Potassium 4.2 mmol/L (3.5-5.1); Protein, Total 6.6 g/dL (6.4-8.2); Sodium Level 140 mmol/L (136-145)
[2024-02-20] MEDS: 0.9% Normal Saline (1000mL) 1,000 ML 15 ML IV ×2 (10:21→18:10)
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
--- NOTE | 2024-02-20 11:46 | EKG12_ITS ---
Test Reason : Blood Pressure : / mmHG Vent. Rate : 077 BPM Atrial Rate : 077 BPM P-R Int : 118 ms QRS Dur : 084 ms QT Int : 296 ms P-R-T Axes : 103 136 -27 degrees QTc Int : 334 ms Suspect arm lead reversal, interpretation assumes no reversal Normal sinus rhythm Right axis deviation Pulmonary disease pattern Nonspecific T wave abnormality Abnormal ECG Confirmed by Nathanael Funes ([id number]), assistant editor CHINTAN ARNOLD ([id number]) on 02/26/2024 5:27:42 AM Referred By: CASSIDY Confirmed By:Nathanael Funes
--- NOTE | 2024-02-20 11:47 | OP.PCM_ITS ---
Report of Operation Date of Procedure: 02/20/24 Pre-Operative Diagnosis: left proximal stone Post-Operative Diagnosis: same Surgery/Procedure Performed:: Cystoscopy and left ureteroscopy laser stone and left stent placement Description of Surgical Findings:: Patient was taken back to the operating room after smooth induction of anesthesia he was placed in dorsolithotomy position. The patient was consented for cystoscopy left stent placement, the penis and testicles were prepped and draped in usual sterile fashion I went into the bladder with a 21 Arabic rigid cystourethroscope the prostate was slightly enlarged the bladder was normal I then cannulated the left ureter orifice and ran a wire up on the left side I could see the stone in the proximal ureter on x-ray I can see the wire going past the stone so then I attempted to place a stent over the wire and the stent went all the way to the stone but then would not go past the stone at all after switching him to a Super Stiff wire would not go past the stone the stone was completely intact in the ureter and possible to get the stone and the stent passed to the stone even the Pollick catheter would get passed a stone I performed a retrograde pyelogram mucousy contrast going up to the stone but barely any contrast came beyond the stone so I decided that have to laser the stone in order to free up the ureter and free of the stone so that the wire in place over the wire went in with a flexible ureteroscope and I found an impacted ureter the stone was impacted all the way under percent around the ureter I then used 150 ?m laser fiber insert lasering right the middle the stone and then I was able to break up the stone it was very difficult angle have to use a flexible ureteroscope tortuous ureter eventually was able to laser the stone completely into small little pieces and they will floated back up to the kidney and then the ureter was free of the stone there was a lot of inflammation a lot of the second layer of care in the ureter from the impacted stone so then I went up to the kidney but that the ureter kidney was all dilated could not see the stone fragments are up in the kidney laser many more but they were lasered to small pieces so then I put a wire up in the kidney backloaded off the wire and then over the wire I placed a stent a 6 Arabic by 26 mm stent plan to leave the stent in for about 3 weeks to let the ureter heal up and lateral little frag ments passed in the office we will get out the stent and see if he can pass the remaining fragments that are still in the kidney is possible he may need a second procedure of those fragments can pass. This explained to the patient later today patient under anesthesia and being awakened and taken back to PACU in good condition. Surgeon: Matthew Shukla Type of Anesthesia: General Drains: stent righty side Estimated Blood Loss (mL): 0 Admit VTE Documentation VTE Present on Admission: No VTE Mechan Device Prophylaxis: SCD's VTE Pharm Prophylaxis ordered?: No
--- NOTE | 2024-02-20 12:52 | PCM.POST.ANE ---
Anesthesia: Postop Eval I Current Vital Signs Temperature: 98.4 F Pulse Rate: 91 Blood Pressure: 152/74 Respiratory Rate: 16 Pulse Ox: 100 Oxygen Delivery Method: Nasal Cannula Oxygen Flow Rate (L/min): 3 Assessment Airway patent: Yes Spontaneous unlabored respirations: Yes Mental status: Awake and Calm nausea: No Vomiting: No Anesthesia Complication: No Fluid Hydration Crystalloid volume administer (ml): 500 Total IV fluid infused: 500 Progress Note Anesthesia document: Postop Eval 1 completed: Yes
--- NOTE | 2024-02-20 13:14 | POSTOPAN2_ITS ---
Anesthesia Postop Eval I Sum Postop Eval Completion status Anesthesia document: Postop Eval 1 completed: Yes Anesthesia Postop Eval I Summary Anesthesia Postop Eval I Summary: Anesthesia Postop Eval I: Assessment Summary Airway patent Yes 02/20/24 13:09 BOTANY LABORATORY ASSISTANT.[email or web address] Spontaneous unlabored Yes 02/20/24 13:09 BOTANY LABORATORY ASSISTANT.GDOTT respirations Mental status Awake,Calm 02/20/24 13:09 BOTANY LABORATORY ASSISTANT.GDOTT nausea No 02/20/24 13:09 BOTANY LABORATORY ASSISTANT.GDOTT Vomiting No 02/20/24 13:09 BOTANY LABORATORY ASSISTANT.GDOTT Anesthesia Postop Eval I: Fluid Summary Crystalloid volume administer 500 02/20/24 13:09 BOTANY LABORATORY ASSISTANT.GDOTT (ml) Colloids volume administered ( ml) Blood Product volume administered (ml) Total IV fluid infused 500 02/20/24 13:09 BOTANY LABORATORY ASSISTANT.GDOTT Anesthesia Postop Eval I: Summary Notes Anesthesia Complication No 02/20/24 13:09 BOTANY LABORATORY ASSISTANT.GDOTT Anesthesia Complication Comment: Post-operative progress note Anesthesia: Postop Eval II Evaluation Mental status: Awake Pain Level: 0 nausea: No Vomiting: No
--- NOTE | 2024-02-20 13:14 | PCM.POSTANE2 ---
Anesthesia Postop Eval I Sum Postop Eval Completion status Anesthesia document: Postop Eval 1 completed: Yes Anesthesia Postop Eval I Summary Anesthesia Postop Eval I Summary: Anesthesia Postop Eval I: Assessment Summary Airway patent Yes 02/20/24 13:09 LICENSED SALES PRODUCER.GDOTT Spontaneous unlabored Yes 02/20/24 13:09 LICENSED SALES PRODUCER.GDOTT respirations Mental status Awake,Calm 02/20/24 13:09 LICENSED SALES PRODUCER.GDOTT nausea No 02/20/24 13:09 LICENSED SALES PRODUCER.GDOTT Vomiting No 02/20/24 13:09 LICENSED SALES PRODUCER.GDOTT Anesthesia Postop Eval I: Fluid Summary Crystalloid volume administer 500 02/20/24 13:09 LICENSED SALES PRODUCER.GDOTT (ml) Colloids volume administered ( ml) Blood Product volume administered (ml) Total IV fluid infused 500 02/20/24 13:09 LICENSED SALES PRODUCER.GDOTT Anesthesia Postop Eval I: Summary Notes Anesthesia Complication No 02/20/24 13:09 LICENSED SALES PRODUCER.GDOTT Anesthesia Complication Comment: Post-operative progress note Anesthesia: Postop Eval II Evaluation Mental status: Awake Pain Level: 0 nausea: No Vomiting: No
--- NOTE | 2024-02-20 14:49 | CASEMGMT ---
Addendum entered by Celena Jj 02/20/24 16:05: RN CM into pt room, pt in bathroom. Visitor at bedside requests RN CM to come back. States pt is done in the restroom but is not feeling well and does not want to come out. Updated pt nurse. Will complete RN CM assessment tomorrow. Original Note: RN CM to ER to complete RN CM assessment. Pt is currently in PACU per ER staff.
[2024-02-20] MEDS: Acetaminophen 325 MG Tablet 650 MG PO (15:36)
[2024-02-20] MEDS: guaiFENesin 10 ML UDC (200MG/10ML) 20 ML PO (15:37)
--- NOTE | 2024-02-20 16:20 | PN_ITS ---
Subjective Subjective Patient seen and examined. His was by his bedside. He was lethargic but arousable. He had a mild fever. He had cystoscopy with ureteric stent insertion today. He had no active complaints and denied any chest pain, palpitations, dizziness, nausea or vomiting. He was noted to be coughing quite a bit. Review of systems is otherwise negative. Objective Data Objective Data Vital Signs: Vital Signs Temp Pulse Resp BP Pulse Ox O2 Del Method O2 Flow Rate 99.3 F H 90 18 133/68 H 94 Nasal Cannula 2 02/20/24 16:15 02/20/24 16:15 02/20/24 16:15 02/20/24 16:15 02/20/24 16:15 02/20/24 16:15 02/20/24 16:15 Oxygen Flow Rate (L/min) 2 Oxygen Delivery Method Nasal Cannula Weight: 195 lb 5.273 oz Body Mass Index (BMI) 27.3 Intake & Output: Intake and Output for Last 24 Hours 02/18/24 02/19/24 02/20/24 23:59 23:59 23:59 Intake Total 1150 / 1150 Output Total 200 / 200 Balance 950 / 950 Lab / Micro Data 02/20/24 08:45 02/20/24 08:45 Labs: Laboratory Results - last 24 hr 02/19/24 21:40: WBC 10.0, RBC 4.78, Hgb 14.0, Hct 43.0, MCV 90.0, MCH 29.3, MCHC 32.6, RDW Std Deviation 41.2, RDW Coeff of Curtis 12.5, Plt Count 219, MPV 9.3, Immature Gran % (Auto) 0.500, Neut % (Auto) 84.5 H, Lymph % (Auto) 8.3 L, [place] % (Auto) 5.9, Eos % (Auto) 0.3, Baso % (Auto) 0.5, Absolute Neuts (auto) 8.5 H, Absolute Lymphs (auto) 0.83, Nucleated RBC % 0, Sodium 139, Potassium 4.1, Chloride 105, Carbon Dioxide 25.0, Anion Gap 9, BUN 22 H, Creatinine 1.21, Estim Creat Clear Calc 60.50, Est GFR (MDRD) Af Amer 76, Est GFR (MDRD) Non-Af 63, BUN/Creatinine Ratio 18.2, Glucose 115 H, Calcium 10.0 02/19/24 21:42: Urine Color Yellow, Urine Clarity Sl. Cloudy, Urine pH 6.0, Ur Specific [place] 1.020, Urine Protein 30 H, Urine Glucose (UA) Normal, Urine Ketones Negative, Urine Occult Blood 250 H, Urine Nitrite Negative, Urine Bilirubin Negative, Urine Urobilinogen Normal, Ur Leukocyte Esterase 500 H, Urine RBC 0-5 SEEN, Urine WBC 5-10 SEEN, Ur Squamous Epith Cells 0 SEEN, Urine Bacteria 1+, Urine Mucus 0 SEEN 02/20/24 08:45: WBC 11.4 H, RBC 4.59 L, Hgb 13.7, Hct 41.9, MCV 91.3, MCH 29.8, MCHC 32.7, RDW Std Deviation 42.5, RDW Coeff of [place] 12.7, Plt Count 194, MPV 9.4, Immature Gran % (Auto) 0.600, Neut % (Auto) 85.6 H, Lymph % (Auto) 5.5 L, [place] % (Auto) 7.8, Eos % (Auto) 0.1, Baso % (Auto) 0.4, Absolute Neuts (auto) 9.7 H, Absolute Lymphs (auto) 0.62 L, Nucleated RBC % 0, Sodium 140, Potassium 4.2, Chloride 107, Carbon Dioxide 26.0, Anion Gap 7, BUN 22 H, Creatinine 1.31 H , Estim Creat Clear Calc 58.81, Est GFR (MDRD) Af Amer 70, Est GFR (MDRD) Non-Af 58 L, BUN/Creatinine Ratio 16.8, Glucose 125 H, Calcium 9.7, Total Bilirubin 0.60, AST 24, ALT 29, Alkaline Phosphatase 50, Total Protein 6.6, Albumin 3.6, Globulin 3.0, Albumin/Globulin Ratio 1.2 Radiography Diagnostic Testing: Radiology Impression Abdomen/Pelvis CT 02/19/24 22:02 IMPRESSION: Mild left hydroureteronephrosis with a 0.7 cm proximal ureteral calculus. Nonobstructing right renal calculus. Posterior bladder wall diverticulum containing multiple calculi. Bladder wall thickening with adjacent inflammation. This could represent infection. Electronically Signed: Sohan Scott MD at 22:59 EDT , Physical Exam Const alert and no apparent distress Orientation / Consciousness: lethargic HEENT normocephalic and head/scalp atraumatic Mouth: dry mucous membranes Eyes PERRL and EOMs intact bilaterally Neck no lymphadenopathy, supple and no JVD Lymph Lymphatic: no lymphadenopathy noted and no lymphedema noted Resp Resp Narrative: mildly diminished breath sounds bibasally, no wheezes or crackles. On 2L of oxygen by nasal canula Cardio regular rate, regular rhythm, S1 normal heart sound, S2 normal heart sound and no murmurs GI normal to inspection, nondistended, normoactive bowel sounds, soft to palpation, non-tender and non-distended Extremity normal capillary refill, no clubbing, cyanosis or edema and no calf tenderness General Extremity: no tenderness to palpation of joints or extremities Skin General Skin Exam: no breakdown Neuro CN's II-XII intact bilaterally and no focal motor deficits Motor Exam: strength 5/5 throughout and general weakness Psych thought process normal and cooperative Psych Narrative: drowsy Assessment & Plan Assessment/Plan (1) Kidney stone on left side: (2) Acute UTI: (3) Hydronephrosis: PLAN: Plan #Infected Acute nephrolithiasis with mild left hydroureteronephrosis * Was admitted with complaint of acute flank pain. Imaging done showed mild left hydroureteronephrosis with a 0.7 cm proximal ureteral calculus. * S/p cystoscopy with ureteral stent insertion. * On IV Rocephin. Developed a mild fever afterwards. Being hydrated with IV fluids. * P.o. Tylenol. IV morphine and p.o. oxycodone as needed for pain #Acute complicated UTI: As above. Urine cultures and blood cultures pending. #Elevated creatinine: * Creatinine is 1.31 today. * Baseline is 0.87 and was 1.1 yesterday. * Likely related to kidney stone and UTI. * Should improve with hydration. * Hydrate gently with IV fluids and trend. * #BPH: On Flomax #Elevated BP * Not a known hypertensive. May be related to pain. On IV hydralazine as needed. Start p.o. meds if blood pressure remains elevated. * DVT prophylaxis: start lovenox Charges/Coding Visit Charges Inpatient E&M: 39112 Subs Hosp L2
--- NOTE | 2024-02-20 16:47 | PCM.PN.GU ---
Subjective Subjective s/p laser of stone and stent stone was impacted so had to laser stone clinically stable. Objective Data Objective Data Vital Signs: Vital Signs Temp Pulse Resp BP Pulse Ox O2 Del Method O2 Flow Rate 99.3 F H 90 18 133/68 H 94 Nasal Cannula 2 02/20/24 16:15 02/20/24 16:15 02/20/24 16:15 02/20/24 16:15 02/20/24 16:15 02/20/24 16:15 02/20/24 16:15 Oxygen Flow Rate (L/min) 2 Oxygen Delivery Method Nasal Cannula Weight: 88.6 kg Body Mass Index (BMI) 27.3 Intake & Output: Intake and Output for Last 24 Hours 02/18/24 02/19/24 02/20/24 23:59 23:59 23:59 Intake Total 1150 / 1150 Output Total 200 / 200 Balance 950 / 950 Lab / Micro Data 02/20/24 08:45 02/20/24 08:45 Labs: Laboratory Results - last 24 hr 02/19/24 21:40: WBC 10.0, RBC 4.78, Hgb 14.0, Hct 43.0, MCV 90.0, MCH 29.3, MCHC 32.6, RDW Std Deviation 41.2, RDW Coeff of Curtis 12.5, Plt Count 219, MPV 9.3, Immature Gran % (Auto) 0.500, Neut % (Auto) 84.5 H, Lymph % (Auto) 8.3 L, [place] % (Auto) 5.9, Eos % (Auto) 0.3, Baso % (Auto) 0.5, Absolute Neuts (auto) 8.5 H, Absolute Lymphs (auto) 0.83, Nucleated RBC % 0, Sodium 139, Potassium 4.1, Chloride 105, Carbon Dioxide 25.0, Anion Gap 9, BUN 22 H, Creatinine 1.21, Estim Creat Clear Calc 60.50, Est GFR (MDRD) Af Amer 76, Est GFR (MDRD) Non-Af 63, BUN/Creatinine Ratio 18.2, Glucose 115 H, Calcium 10.0 02/19/24 21:42: Urine Color Yellow, Urine Clarity Sl. Cloudy, Urine pH 6.0, Ur Specific [place] 1.020, Urine Protein 30 H, Urine Glucose (UA) Normal, Urine Ketones Negative, Urine Occult Blood 250 H, Urine Nitrite Negative, Urine Bilirubin Negative, Urine Urobilinogen Normal, Ur Leukocyte Esterase 500 H, Urine RBC 0-5 SEEN, Urine WBC 5-10 SEEN, Ur Squamous Epith Cells 0 SEEN, Urine Bacteria 1+, Urine Mucus 0 SEEN 02/20/24 08:45: WBC 11.4 H, RBC 4.59 L, Hgb 13.7, Hct 41.9, MCV 91.3, MCH 29.8, MCHC 32.7, RDW Std Deviation 42.5, RDW Coeff of Curtis 12.7, Plt Count 194, MPV 9.4, Immature Gran % (Auto) 0.600, Neut % (Auto) 85.6 H, Lymph % (Auto) 5.5 L, [place] % (Auto) 7.8, Eos % (Auto) 0.1, Baso % (Auto) 0.4, Absolute Neuts (auto) 9.7 H, Absolute Lymphs (auto) 0.62 L, Nucleated RBC % 0, Sodium 140, Potassium 4.2, Chloride 107, Carbon Dioxide 26.0, Anion Gap 7, BUN 22 H, Creatinine 1.31 H, Estim Creat Clear Calc 58.81, Est GFR (MDRD) Af Amer 70, Est GFR (MDRD) Non-Af 58 L, BUN/Creatinine Ratio 16.8, Glucose 125 H, Calcium 9.7, Total Bilirubin 0.60, AST 24, ALT 29, Alkaline Phosphatase 50, Total Protein 6.6, Albumin 3.6, Globulin 3.0, Albumin/Globulin Ratio 1.2 Radiography Diagnostic Testing: Radiology Impression Abdomen/Pelvis CT 02/19/24 22:02 IMPRESSION: Mild left hydroureteronephrosis with a 0.7 cm proximal ureteral calculus. Nonobstructing right renal calculus. Posterior bladder wall diverticulum containing multiple calculi. Bladder wall thickening with adjacent inflammation. This could represent infection. Electronically Signed: Sohan Scott MD at 22:59 EDT ,
--- NOTE | 2024-02-20 16:48 | DCINST_ITS ---
Discharge Instructions Diet Discharge Diet: No restrictions Activity Discharge Activity: Return to Normal Activity and May Not Drive (while taking narcotic pain medications.) Dressing / Incision Call your doctor if you observe: Fever of 101 or Higher Follow Up Care Please Follow Up With: Matthew Shukla MD When: Call [phone] for an appointment Test Results: Test results from this visit will be discussed in further detail at your follow- up appointment, if applicable. Discharge Plan Admission Admit Date/Time: 02/19/24 23:44 Attending Provider: Alina Morales Primary Care Provider: Care Physician,No Primary Consulting Providers: Matthew Shukla; Nafisa Sullivan Discharge Orders/Prescriptions Referrals / Follow Up: Care Physician,No Primary [Primary Care Provider] -
[2024-02-20] MEDS: Tamsulosin HCl 0.4 MG Capsule PO (20:58)
[2024-02-20] MEDS: Phenazopyridine 95 MG Tablet PO (20:59)
[2024-02-20] MEDS: 0.9% Saline Lock 10 ML Syringe IV (21:06)
[2024-02-20] MEDS: Ceftriaxone 1 GM/50 ML BAG IV (21:10)
[2024-02-20] MEDS: traMADol 50 MG Tablet 100 MG PO (22:26)
[2024-02-21 00:06] VITALS: BP 145/72; PULSE 74; RESP 16; TEMP 36.5; O2SAT 92
[2024-02-21] MEDS: HYDROmorphone 1 MG/ML Syringe IV ×2 (00:16→23:26)
[2024-02-21 04:12] VITALS: BP 141/72; PULSE 77; RESP 16; TEMP 36.6; O2SAT 93
[2024-02-21] MEDS: Phenazopyridine 95 MG Tablet PO ×3 (04:24→23:19)
[2024-02-21] MEDS: traMADol 50 MG Tablet 100 MG PO ×3 (04:27→20:00)
[2024-02-21 06:00] VITALS: BMI 27.3
[2024-02-21 07:09] LABS: Absolute Lymphocyte Count 0.77 X10^3/uL (0.83-4.51); Absolute Neutrophil Count 9.5 X10^3/uL (2.0-7.7); Basophil# 0.03 X10^3/uL; Basophil% 0.3 % (0-1); Eosinophil# 0.01 X10^3/uL; Eosinophils% 0.1 % (0-5); Hematocrit 37.5 % (40-54); Lymphocyte # 0.77 X10^3/ul (0.83-4.51); Lymphocyte % 6.9 % (19-41); Mean Corpuscular Hgb 29.6 pg (27.0-32.0); Mean Corpuscular Volume 92.6 fL (80-94); Mean Platelet Vol. 9.4 fl (6.2-12.0); Monocyte# 0.77 X10^3/uL; Monocyte% 6.9 % (0-10); NRBC Flagged by Analyzer 0 % (0-5); Neutrophil # 9.49 X10^3/uL (2.7-7.7); Neutrophil % 85.4 % (47-70); Platelet Count 192 K/mm3 (150-450); RBC Distribution Width CV 12.9 % (11.6-14.6); RBC Distribution Width SD 43.8 fl (35.1-43.9); Red Blood Count 4.05 M/mm3 (4.6-6.2); White Blood Count 11.1 K/mm3 (4.4-11.0)
--- NOTE | 2024-02-21 07:14 | CON.PCM.UR_ITS ---
HPI Consult Data Date of Consult: 02/21/24 HPI Narrative Reason for Consultation: Kidney stone HPI Narrative: NILS VERMA, is a 68 M status post laser of the stone impacted in the left ureter fairly impacted ureter so he will have to go home with a stent had a lot of pain last night but the pain is let up, he was open to stay 1 more night we will have to see if that is necessary based on his infection. He is still on broad- spectrum antibiotics. From urology standpoint I think can go home tomorrow and he has a stent in place he can follow-up in my office for cystoscopy stent removal in about 3 weeks patient was told this to call make an appointment to see me to get the stent out. PFSH Medical History BPH (benign prostatic hyperplasia) CKD (chronic kidney disease), stage I History of nephrolithiasis Wears glasses Non-smoker Allergy/AdvReac Type Severity Reaction Status Date / Time diazepam (From Valium) Allergy Severe Anaphylaxis Verified 02/19/24 18:59 amoxicillin Allergy Intermediate Rash Verified 02/19/24 18:59 acetaminophen (From AdvReac Mild Nausea/Vom/ Verified 02/19/24 18:59 Darvocet-N) Diarrhea naproxen (From Naprosyn) AdvReac Mild Hives Verified 02/20/24 22:10 oxycodone (From Percocet) AdvReac Mild Nausea/Vom/ Verified 02/19/24 18:59 Diarrhea propoxyphene (From AdvReac Mild Nausea/Vom/ Verified 02/19/24 18:59 Darvocet-N) Diarrhea Family History Mother No problems noted. Father No problems noted. Family History no significant family his Surgical History History of umbilical hernia repair History of extraction of renal calculus History of appendectomy Social History household members: spouse Smoking Status: Never smoker alcohol intake: current alcohol intake frequency: holidays/special occasions only substance use type: does not use Lab / Micro Data 02/21/24 06:34 02/20/24 08:45 Labs: Laboratory Results - last 24 hr 02/20/24 08:45: WBC 11.4 H, RBC 4.59 L, Hgb 13.7, Hct 41.9, MCV 91.3, MCH 29.8, MCHC 32.7, RDW Std Deviation 42.5, RDW Coeff of Curtis 12.7, Plt Count 194, MPV 9.4, Immature Gran % (Auto) 0.600, Neut % (Auto) 85.6 H, Lymph % (Auto) 5.5 L, [place] % (Auto) 7.8, Eos % (Auto) 0.1, Baso % (Auto) 0.4, Absolute Neuts (auto) 9.7 H, Absolute Lymphs (auto) 0.62 L, Nucleated RBC % 0, Sodium 140, Potassium 4.2, Chloride 107, Carbon Dioxide 26.0, Anion Gap 7, BUN 22 H, Creatinine 1.31 H , Estim Creat Clear Calc 58.81, Est GFR (MDRD) Af Amer 70, Est GFR (MDRD) Non-Af 58 L, BUN/Creatinine Ratio 16.8, Glucose 125 H, Calcium 9.7, Total Bilirubin 0.60, AST 24, ALT 29, Alkaline Phosphatase 50, Total Protein 6.6, Albumin 3.6, Globulin 3.0, Albumin/Globulin Ratio 1.2 02/21/24 06:34: WBC 11.1 H, RBC 4.05 L, Hgb 12.0 L, Hct 37.5 L, MCV 92.6, MCH 29.6, MCHC 32.0, RDW Std Deviation 43.8, RDW Coeff of Curtis 12.9, Plt Count 192, MPV 9.4, Immature Gran % (Auto) 0.400, Neut % (Auto) 85.4 H, Lymph % (Auto) 6.9 L, [place] % (Auto) 6.9, Eos % (Auto) 0.1, Baso % (Auto) 0.3, Absolute Neuts (auto) 9.5 H, Absolute Lymphs (auto) 0.77 L, Nucleated RBC % 0
[2024-02-21 07:36] LABS: Anion Gap 6 (5-15); BUN 24 mg/dL (7-18); BUN/Creat Ratio 15.2 RATIO (10-20); Calcium,Total 8.7 mg/dL (8.5-10.1); Chloride 106 mmol/L (98-107); Creatinine, Serum 1.58 mg/dL (0.70-1.30); EST Glomerular Filtration Rate 46 mL/min (>60); Est Glom Filt Rate - Afr Amer 56 mL/min (>60); Estimated Creatinine Clearance 48.76 ml/min; Glucose 118 mg/dL (74-106); Potassium 3.9 mmol/L (3.5-5.1); Sodium Level 137 mmol/L (136-145)
[2024-02-21 08:10] VITALS: BP 122/70; PULSE 74; RESP 16; TEMP 36.9; O2SAT 95
[2024-02-21] MEDS: Enoxaparin 40 MG/0.4 ML Syringe SC (08:38)
[2024-02-21] MEDS: Tamsulosin HCl 0.4 MG Capsule PO ×2 (08:39→23:19)
[2024-02-21] MEDS: Famotidine 20 MG Tablet PO ×2 (08:39→23:19)
[2024-02-21] MEDS: Acetaminophen 325 MG Tablet 650 MG PO (08:42)
--- NOTE | 2024-02-21 10:45 | CASEMGMT ---
VESTA BORDEN Assessment: Face to Face with pt for initial transition planning/care coordination assessment. VESTA BORDEN introduced self and role at [facility], pt voices understanding and consents to assessment. Pt is A&O x4 and answers all questions appropriately at this time. Pt sitting up in bed in no distress. Care providers, pharmacy, and demographics verified/updated. Admitting Dx:complicated UTI mild hydroureteronephrosis Strata Score: 1 PCP:Denies, pt denies need for list of local PCP's. States he knows who they are but we are not doctor people. Specialists:Denies Preferred Pharmacy: [facility] Retail Insurance: [facility] Prescription Benefit: yes LNOK: Diandra Ray, ; yuliya Floresr Living Arrangements: Pt lives with in a two story home with 12 steps with rail to enter main living area. Pt reports he is I in ADLs and denies concerns at home. Has FFSU. Transportation: Pt drives self and denies concerns with transportation. DME:Denies HHC/SNF: Denies hx of Pt states no concerns with going home at time of dc. Pt states no further concerns/needs. CM to follow. Advised pt to ask CM if any further question/concerns/needs arise, voices understanding. Pt Goal: Home Plan: Home Libby LEMONS CM
[2024-02-21 12:00] VITALS: BP 123/59; PULSE 63; RESP 18; TEMP 37; O2SAT 97
[2024-02-21] MEDS: 0.9% Normal Saline (1000mL) 1,000 ML 125 ML IV ×2 (12:04→19:59)
[2024-02-21] MEDS: 0.9% Saline Lock 10 ML Syringe IV (12:07)
--- NOTE | 2024-02-21 13:06 | PN_ITS ---
Subjective Subjective Patient seen and examined. More alert today. He complained of pain with urination. He denied any fever or chills and review of systems otherwise negative. He has remained hemodynamically stable. His creatinine has trended up slightly to 1.58 today. Objective Data Objective Data Vital Signs: Vital Signs Temp Pulse Resp BP Pulse Ox O2 Del Method O2 Flow Rate 98.6 F 63 18 123/59 H 97 Room Air 2 02/21/24 12:00 02/21/24 12:00 02/21/24 12:00 02/21/24 12:00 02/21/24 12:02/21/24 12:00 02/20/24 21:19 Oxygen Flow Rate (L/min) 2 Oxygen Delivery Method Room Air Weight: 195 lb 5.273 oz Body Mass Index (BMI) 27.3 Intake & Output: Intake and Output for Last 24 Hours 02/19/24 02/20/24 02/21/24 23:59 23:59 23:59 Intake Total 1667.25 / 1967.25 900 / 900 Output Total 200 / 200 1000 / 1000 Balance 1467.25 / 1767.25 -100 / -100 Lab / Micro Data 02/21/24 06:34 02/21/24 06:34 Labs: Laboratory Results - last 24 hr 02/21/24 06:34: WBC 11.1 H, RBC 4.05 L, Hgb 12.0 L, Hct 37.5 L, MCV 92.6, MCH 29.6, MCHC 32.0, RDW Std Deviation 43.8, RDW Coeff of Curtis 12.9, Plt Count 192, MPV 9.4, Immature Gran % (Auto) 0.400, Neut % (Auto) 85.4 H, Lymph % (Auto) 6.9 L, [place] % (Auto) 6.9, Eos % (Auto) 0.1, Baso % (Auto) 0.3, Absolute Neuts (auto) 9.5 H, Absolute Lymphs (auto) 0.77 L, Nucleated RBC % 0, Sodium 137, Potassium 3.9, Chloride 106, Carbon Dioxide 25.0, Anion Gap 6, BUN 24 H, Creatinine 1.58 H , Estim Creat Clear Calc 48.76, Est GFR (MDRD) Af Amer 56 L, Est GFR (MDRD) Non- Af 46 L, BUN/Creatinine Ratio 15.2, Glucose 118 H, Calcium 8.7 Physical Exam Const alert and no apparent distress General Appearance: cooperative and well developed Orientation / Consciousness: lethargic HEENT normocephalic and head/scalp atraumatic Eyes PERRL and EOMs intact bilaterally Neck no lymphadenopathy, supple and no JVD Lymph Lymphatic: no lymphadenopathy noted and no lymphedema noted Resp Resp Narrative: mildly diminished breath sounds bibasally, no wheezes or crackles. On room air. Cardio regular rate, regular rhythm, S1 normal heart sound, S2 normal heart sound and no murmurs GI normal to inspection, nondistended, normoactive bowel sounds, soft to palpation, non-tender and non-distended Extremity normal capillary refill, no clubbing, cyanosis or edema and no calf tenderness General Extremity: no tenderness to palpation of joints or extremities Skin General Skin Exam: no breakdown Neuro CN's II-XII intact bilaterally and no focal motor deficits Motor Exam: strength 5/5 throughout and general weakness Psych thought process normal and cooperative Assessment & Plan Assessment/Plan (1) Kidney stone on left side: (2) Acute UTI: (3) Hydronephrosis: PLAN: Plan #Infected Acute nephrolithiasis with mild left hydroureteronephrosis * Was admitted with complaint of acute flank pain. Imaging done showed mild left hydroureteronephrosis with a 0.7 cm proximal ureteral calculus. * S/p cystoscopy with ureteral stent insertion. * On IV Rocephin. Developed a mild fever afterwards. Being hydrated with IV fluids. * P.o. Tylenol. IV morphine and p.o. oxycodone as needed for pain * still complaining of pain with urination. Continue pain meds and consider adding Pyridium if pain persists. #Acute complicated UTI: As above. Urine cultures and blood cultures pending. #TELLO * Creatinine is up to 1.58 today.. * Baseline is 0.87 and was 1.1 yesterday. * Likely related to kidney stone and UTI. * Continue hydration with IV fluids and trend creatinine. * Hydrate gently with IV fluids and trend. * #BPH: On Flomax #Elevated BP * Not a known hypertensive. May be related to pain. * BP is improved and was down to 123/59 today. On IV hydralazine as needed. * Likely due to pain * start p.o. meds if blood pressure remains elevated. * DVT prophylaxis: SQ lovenox Charges/Coding Visit Charges Inpatient E&M: 80450 Subs Hosp L2
[2024-02-21] MEDS: Senna/Docusate Sodium 1 Tablet 2 TABLET PO (18:22)
[2024-02-21] MEDS: Ceftriaxone 1 GM/50 ML BAG IV (23:17)
[2024-02-21 23:23] VITALS: BP 141/72; PULSE 83; RESP 16; TEMP 36.6; O2SAT 94
[2024-02-21] MEDS: MELATONIN 3 MG TABLET PO (23:26)
[2024-02-22] MEDS: traMADol 50 MG Tablet 100 MG PO ×3 (04:17→19:29)
[2024-02-22] MEDS: Phenazopyridine 95 MG Tablet PO ×2 (04:17→14:44)
[2024-02-22] MEDS: Senna/Docusate Sodium 1 Tablet 2 TABLET PO (04:17)
[2024-02-22 04:21] VITALS: BP 158/77; PULSE 77; RESP 16; TEMP 36.8; O2SAT 97
[2024-02-22 05:07] LABS: Absolute Neutrophil Count 6.9 X10^3/uL (2.0-7.7); Basophil# 0.02 X10^3/uL; Basophil% 0.2 % (0-1); Eosinophil# 0.06 X10^3/uL; Eosinophils% 0.7 % (0-5); Hematocrit 35.8 % (40-54); Hemoglobin 11.6 g/dL (13.0-16.5); Lymphocyte % 12.4 % (19-41); Mean Corp Hgb Conc 32.4 g/dL (32-36); Mean Corpuscular Hgb 30.1 pg (27.0-32.0); Mean Corpuscular Volume 92.7 fL (80-94); Monocyte# 0.76 X10^3/uL; Monocyte% 8.6 % (0-10); NRBC Flagged by Analyzer 0 % (0-5); Neutrophil # 6.87 X10^3/uL (2.7-7.7); Neutrophil % 77.6 % (47-70); Platelet Count 181 K/mm3 (150-450); RBC Distribution Width CV 12.6 % (11.6-14.6); RBC Distribution Width SD 43.2 fl (35.1-43.9); Red Blood Count 3.86 M/mm3 (4.6-6.2); White Blood Count 8.9 K/mm3 (4.4-11.0)
[2024-02-22 05:42] LABS: Anion Gap 6 (5-15); BUN 24 mg/dL (7-18); Calcium,Total 8.5 mg/dL (8.5-10.1); Chloride 106 mmol/L (98-107); Creatinine, Serum 1.41 mg/dL (0.70-1.30); EST Glomerular Filtration Rate 53 mL/min (>60); Est Glom Filt Rate - Afr Amer 64 mL/min (>60); Estimated Creatinine Clearance 54.64 ml/min; Glucose 116 mg/dL (74-106); Potassium 3.6 mmol/L (3.5-5.1); Sodium Level 136 mmol/L (136-145)
[2024-02-22 06:10] VITALS: BMI 27.3
[2024-02-22 07:12] VITALS: O2SAT 96
[2024-02-22] MEDS: 0.9% Saline Lock 10 ML Syringe IV (09:11)
[2024-02-22] MEDS: 0.9% Normal Saline (1000mL) 1,000 ML 150 ML IV ×2 (09:11→16:30)
[2024-02-22] MEDS: HYDROmorphone 1 MG/ML Syringe IV ×4 (09:11→21:55)
[2024-02-22] MEDS: Famotidine 20 MG Tablet PO ×2 (09:24→20:24)
[2024-02-22] MEDS: Enoxaparin 40 MG/0.4 ML Syringe SC (09:24)
[2024-02-22 09:28] VITALS: BP 135/79; PULSE 80; RESP 18; TEMP 36.9; O2SAT 95
[2024-02-22] MEDS: Tamsulosin HCl 0.4 MG Capsule PO ×2 (09:28→20:24)
--- NOTE | 2024-02-22 11:51 | PCM.PROGNOTE ---
Subjective Subjective Patient seen and examined. He complains of some left flank pain. He denied any nausea, vomiting or any vomiting. He is still having some pain with urination. Review of systems was otherwise negative. Objective Data Objective Data Vital Signs: Vital Signs Temp Pulse Resp BP Pulse Ox O2 Del Method O2 Flow Rate 98.4 F 80 18 135/79 H 95 Room Air 2 02/22/24 09:28 02/22/24 09:28 02/22/24 09:02/22/24 09:02/22/24 09:02/22/24 09:02/20/24 21:19 Oxygen Flow Rate (L/min) 2 Oxygen Delivery Method Room Air Weight: 195 lb 5.273 oz Body Mass Index (BMI) 27.3 Intake & Output: Intake and Output for Last 24 Hours 02/20/24 02/21/24 02/22/24 23:59 23:59 23:59 Intake Total 1667.25 / 1967.25 1939.58 / 2139.58 1300 / 1300 Output Total 200 / 200 1900 / 2150 550 / 550 Balance 1467.25 / 1767.25 39.58 / -10.42 750 / 750 Lab / Micro Data 02/22/24 04:54 02/22/24 04:54 Labs: Laboratory Results - last 24 hr 02/22/24 04:54: WBC 8.9, RBC 3.86 L, Hgb 11.6 L, Hct 35.8 L, MCV 92.7, MCH 30.1, MCHC 32.4, RDW Std Deviation 43.2, RDW Coeff of Curtis 12.6, Plt Count 181, MPV 9.0, Immature Gran % (Auto) 0.500, Neut % (Auto) 77.6 H, Lymph % (Auto) 12.4 L, [place] % (Auto) 8.6, Eos % (Auto) 0.7, Baso % (Auto) 0.2, Absolute Neuts (auto) 6.9, Absolute Lymphs (auto) 1.10, Nucleated RBC % 0, Sodium 136, Potassium 3.6, Chloride 106, Carbon Dioxide 24.0, Anion Gap 6, BUN 24 H, Creatinine 1.41 H, Estim Creat Clear Calc 54.64, Est GFR (MDRD) Af Amer 64, Est GFR (MDRD) Non-Af 53 L, BUN/Creatinine Ratio 17.0, Glucose 116 H, Calcium 8.5 Physical Exam Const alert, oriented x3 and no apparent distress General Appearance: cooperative and well developed HEENT normocephalic and head/scalp atraumatic Eyes PERRL and EOMs intact bilaterally Neck no lymphadenopathy, supple and no JVD Lymph Lymphatic: no lymphadenopathy noted and no lymphedema noted Resp Resp Narrative: mildly diminished breath sounds bibasally, no wheezes or crackles. On room air. Cardio regular rate, regular rhythm, S1 normal heart sound, S2 normal heart sound and no murmurs GI normal to inspection, nondistended, normoactive bowel sounds, soft to palpation, non-tender and non-distended Extremity normal capillary refill, no clubbing, cyanosis or edema and no calf tenderness General Extremity: no tenderness to palpation of joints or extremities Skin General Skin Exam: no breakdown Neuro CN's II-XII intact bilaterally and no focal motor deficits Motor Exam: strength 5/5 throughout and general weakness Psych thought process normal and cooperative Appearance: appropriate Assessment & Plan Assessment/Plan (1) Kidney stone on left side: (2) Acute UTI: (3) Hydronephrosis: PLAN: Plan #Infected Acute nephrolithiasis with mild left hydroureteronephrosis Was admitted with complaint of acute flank pain. Imaging done showed mild left hydroureteronephrosis with a 0.7 cm proximal ureteral calculus. S/p cystoscopy with ureteral stent insertion. On IV Rocephin. Developed a mild fever afterwards. Being hydrated with IV fluids. P.o. Tylenol. IV morphine and p.o. oxycodone as needed for pain still complaining of pain with urination. already on pyridium #Acute complicated UTI: As above. Urine cultures and blood cultures pending. #TELLO Creatinine is down to 1.41 today. Baseline is 0.87 and was 1.1 yesterday. Likely related to kidney stone and UTI. Continue hydration with IV fluids and trend creatinine. #BPH: On Flomax #Elevated BP Not a known hypertensive. May be related to pain. BP is improved and was down to 123/59 today. On IV hydralazine as needed. DVT prophylaxis: SQ lovenox Charges/Coding Visit Charges Inpatient E&M: 61064 Subs Hosp L2
[2024-02-22 14:39] VITALS: BP 140/78; PULSE 79; RESP 18; TEMP 36.9; O2SAT 92
[2024-02-22 20:00] VITALS: BP 159/82; PULSE 79; RESP 20; TEMP 37.2; O2SAT 97
--- NOTE | 2024-02-22 21:30 | NURSING ---
Bladder scanned for 315. Pt still unable to void. Feeling pressure in bladder. Called Dr. Shukla earlier in shift. Okay to straight cath if needed. Straight cathed for 475cc. Dark colored tea urine with sediment noted. Urine strained small chelsea noted.
[2024-02-22] MEDS: Ceftriaxone 1 GM/50 ML BAG IV (22:14)
[2024-02-23 02:00] VITALS: BP 164/80; PULSE 79; RESP 19; TEMP 37.3; O2SAT 97
[2024-02-23] MEDS: traMADol 50 MG Tablet 100 MG PO ×3 (03:47→20:54)
[2024-02-23] MEDS: HYDROmorphone 1 MG/ML Syringe IV ×5 (04:36→22:23)
[2024-02-23 06:00] VITALS: BMI 29.0
[2024-02-23 08:13] LABS: Absolute Lymphocyte Count 0.71 X10^3/uL (0.83-4.51); Absolute Neutrophil Count 6.7 X10^3/uL (2.0-7.7); Basophil# 0.03 X10^3/uL; Basophil% 0.4 % (0-1); Eosinophil# 0.16 X10^3/uL; Eosinophils% 1.9 % (0-5); Hematocrit 35.2 % (40-54); Hemoglobin 11.2 g/dL (13.0-16.5); Lymphocyte # 0.71 X10^3/ul (0.83-4.51); Lymphocyte % 8.4 % (19-41); Mean Corp Hgb Conc 31.8 g/dL (32-36); Mean Corpuscular Hgb 29.7 pg (27.0-32.0); Mean Corpuscular Volume 93.4 fL (80-94); Mean Platelet Vol. 9.4 fl (6.2-12.0); Monocyte% 10.6 % (0-10); NRBC Flagged by Analyzer 0 % (0-5); Neutrophil # 6.66 X10^3/uL (2.7-7.7); Neutrophil % 78.2 % (47-70); Platelet Count 206 K/mm3 (150-450); RBC Distribution Width CV 12.7 % (11.6-14.6); RBC Distribution Width SD 43.6 fl (35.1-43.9); Red Blood Count 3.77 M/mm3 (4.6-6.2); White Blood Count 8.5 K/mm3 (4.4-11.0)
--- NOTE | 2024-02-23 08:39 | CT_ITS ---
HISTORY: severe abdominal pain, recently had cystoscopy. TECHNIQUE: Helically acquired images were obtained of the abdomen and pelvis without oral or IV contrast. A radiation dose optimization technique was used for this scan. 553 images. COMPARISON: 02/19/2024 FINDINGS: LOWER CHEST: Mild dependent left lower lobe opacity with mild pleural effusion. Coronary artery calcification present. BOWEL: Mild hiatal hernia. Bowel nondilated. Appendix not visualized. Colonic diverticulosis without focal pericolonic inflammatory change. PERITONEUM: Trace free fluid in the pelvis. LIVER/SPLEEN: Mild hepatosplenomegaly. GALLBLADDER/BILIARY TREE: Gallbladder present. PANCREAS/ADRENAL GLANDS: Nonenlarged. KIDNEYS AND URETERS: 3.1 x 8.6 cm left retroperitoneal fluid collection with simple attenuation and mild extraluminal retroperitoneal air. Placement of proximal end of ureteral stent in the left extrarenal pelvis. Probable interval lithotripsy with the large proximal ureteral calculus no longer identified and smaller calculi measuring 2 mm and 5 mm in the distal ureter. Mild left hydronephrosis hydroureter. 1 mm upper and 2 mm interpolar right renal calculi without hydronephrosis. Small simple appearing right renal cysts; no follow-up indicated. VESSELS: No abdominal aortic aneurysm. Atherosclerosis of the abdominal aorta and its major branches. PELVIC ORGANS: Distal end of ureteral stent in the bladder. Posterior bladder diverticulum containing bladder calculi again seen, now with punctate air from recent procedure. Mild prostate calcifications. Mildly prominent left scrotal vessels. ABDOMINAL WALL: Left inguinal hernia containing a short segment of sigmoid colon. BONES: Degenerative change. CT/Abdomen/Pelvis without Cont IMPRESSION: Moderate left retroperitoneal fluid collection with low attenuation and mild air, favoring postprocedural urinoma or even abscess over hematoma. Interval placement of left ureteral stent and probable lithotripsy with mild hydronephrosis and smaller 2-5 mm calculi in the distal ureter. Small nonobstructing right renal calculi. Bladder diverticulum containing calculi. Mildly prominent left scrotal vessels, possible varicocele. Mild left pleural effusion with left lower lobe atelectasis or pneumonia. Left inguinal hernia containing sigmoid colon without evidence for colonic obstruction. Mild hiatal hernia. Colonic diverticulosis without acute diverticulitis. Electronically Signed: Diana Dias MD at 9:55 EDT ,
[2024-02-23 08:55] LABS: Anion Gap 7 (5-15); BUN 30 mg/dL (7-18); BUN/Creat Ratio 13.5 RATIO (10-20); Calcium,Total 8.8 mg/dL (8.5-10.1); Chloride 103 mmol/L (98-107); Creatinine, Serum 2.23 mg/dL (0.70-1.30); EST Glomerular Filtration Rate 31 mL/min (>60); Est Glom Filt Rate - Afr Amer 38 mL/min (>60); Estimated Creatinine Clearance 35.54 ml/min; Glucose 98 mg/dL (74-106); Potassium 3.7 mmol/L (3.5-5.1); Sodium Level 134 mmol/L (136-145)
[2024-02-23] MEDS: 0.9% Saline Lock 10 ML Syringe IV ×3 (09:00→22:23)
[2024-02-23 09:09] VITALS: BP 167/78; PULSE 84; RESP 20; TEMP 36.8; O2SAT 97
[2024-02-23] MEDS: Famotidine 20 MG Tablet PO ×2 (11:49→20:53)
[2024-02-23] MEDS: Tamsulosin HCl 0.4 MG Capsule PO ×2 (11:49→20:54)
--- NOTE | 2024-02-23 12:54 | PN_ITS ---
Subjective Subjective Patient seen and examined. He still complained of severe pain in his left flank. He says the pain continues to worsen. He denies any fever or chills. Review of systems is otherwise negative. Objective Data Objective Data Vital Signs: Vital Signs Temp Pulse Resp BP Pulse Ox O2 Del Method O2 Flow Rate 98.3 F 84 20 H 167/78 H 97 Room Air 2 02/23/24 09:09 02/23/24 09:09 02/23/24 09:09 02/23/24 09:09 02/23/24 09:09 02/23/24 09:09 02/20/24 21:19 Oxygen Flow Rate (L/min) 2 Oxygen Delivery Method Room Air Weight: 207 lb 14.334 oz Body Mass Index (BMI) 29.0 Intake & Output: Intake and Output for Last 24 Hours 02/21/24 02/22/24 02/23/24 23:59 23:59 23:59 Intake Total 1939.58 / 2139.58 3450 / 3450 1750 / 1750 Output Total 1900 / 2150 1325 / 1325 275 / 275 Balance 39.58 / -10.42 2125 / 2125 1475 / 1475 Lab / Micro Data 02/23/24 07:05 02/23/24 07:05 Labs: Laboratory Results - last 24 hr 02/23/24 07:05: WBC 8.5, RBC 3.77 L, Hgb 11.2 L, Hct 35.2 L, MCV 93.4, MCH 29.7, MCHC 31.8 L, RDW Std Deviation 43.6, RDW Coeff of Curtis 12.7, Plt Count 206, MPV 9.4, Immature Gran % (Auto) 0.500, Neut % (Auto) 78.2 H, Lymph % (Auto) 8.4 L, M sirisha % (Auto) 10.6 H, Eos % (Auto) 1.9, Baso % (Auto) 0.4, Absolute Neuts (auto) 6.7, Absolute Lymphs (auto) 0.71 L, Nucleated RBC % 0, Sodium 134 L, Potassium 3.7, Chloride 103, Carbon Dioxide 24.0, Anion Gap 7, BUN 30 H, Creatinine 2.23 H , Estim Creat Clear Calc 35.54, Est GFR (MDRD) Af Amer 38 L, Est GFR (MDRD) Non- Af 31 L, BUN/Creatinine Ratio 13.5, Glucose 98, Calcium 8.8 Micro: Microbiology 02/20/24 17:23 Blood Culture (Wb) - Anticubital Left Blood Culture - Preliminary No growth in 48 hours. 02/19/24 21:42 Urine, Clean Catch Urine Culture - Final Mixed Gram Positive Organisms Radiography Diagnostic Testing: Radiology Impression Abdomen/Pelvis CT 02/23/24 08:39 IMPRESSION: Moderate left retroperitoneal fluid collection with low attenuation and mild air, favoring postprocedural urinoma or even abscess over hematoma. Interval placement of left ureteral stent and probable lithotripsy with mild hydronephrosis and smaller 2-5 mm calculi in the distal ureter. Small nonobstructing right renal calculi. Bladder diverticulum containing calculi. Mildly prominent left scrotal vessels, possible varicocele. Mild left pleural effusion with left lower lobe atelectasis or pneumonia. Left inguinal hernia containing sigmoid colon without evidence for colonic obstruction. Mild hiatal hernia. Colonic diverticulosis without acute diverticulitis. Electronically Signed: Diana Dias MD at 9:55 EDT , Physical Exam Const alert and oriented x3 Constitutional Narrative: in moderate distress due to severe pain General Appearance: cooperative and well developed HEENT normocephalic and head/scalp atraumatic Eyes PERRL and EOMs intact bilaterally Neck no lymphadenopathy, supple and no JVD Lymph Lymphatic: no lymphadenopathy noted and no lymphedema noted Resp Resp Narrative: mildly diminished breath sounds bibasally, no wheezes or crackles. On room air. Cardio regular rate, regular rhythm, S1 normal heart sound, S2 normal heart sound and no murmurs GI normal to inspection, nondistended, normoactive bowel sounds, soft to palpation and non-distended GI Narrative: left flank pain. Extremity normal capillary refill, no clubbing, cyanosis or edema and no calf tenderness General Extremity: no tenderness to palpation of joints or extremities Skin General Skin Exam: no breakdown Neuro CN's II-XII intact bilaterally and no focal motor deficits Motor Exam: strength 5/5 throughout and general weakness Psych thought process normal and cooperative Appearance: appropriate Assessment & Plan Assessment/Plan (1) Kidney stone on left side: (2) Acute UTI: (3) Hydronephrosis: PLAN: Plan #Infected Acute nephrolithiasis with mild left hydroureteronephrosis * Was admitted with complaint of acute flank pain. Imaging done showed mild left hydroureteronephrosis with a 0.7 cm proximal ureteral calculus. * S/p cystoscopy with ureteral stent insertion. * On IV Rocephin. Developed a mild fever afterwards. Being hydrated with IV fluids. * P.o. Tylenol. IV morphine and p.o. oxycodone as needed for pain * still complaining of severe left flank pain with urination. * Already on pyridium. * CT abdomen and pelvis without contrast done today showed moderate left retroperitoneal fluid collection with low attenuation and mild air, favoring postprocedural urinoma or even abscess over hematoma. * #Acute complicated UTI: * As above. * Urine cultures and blood cultures pending. * Blood cultures show no growth after 48 hours. Urine cultures showed mixed gram positive organisms. #TELLO * Creatinine has trended up today from 1.41 to 2.23 today. * baseline Cr is 0.87. May be due to the postprocedural hematoma or even abscess over hematoma * vidal catheter in situ * Likely related to kidney stone and UTI and now having the postprocedural hematoma vs abscess * urology informed. Await rec's. * * #BPH: On Flomax #Elevated BP * Not a known hypertensive. May be related to pain. * BP is elevated today again to 167/78. Likely due to the severe pain. * on IV hydralazine prn. * * DVT prophylaxis: SQ lovenox Charges/Coding Visit Charges Inpatient E&M: 23897 Subs Hosp L3
[2024-02-23] MEDS: 0.9% Normal Saline (1000mL) 1,000 ML 125 ML IV ×2 (13:51→20:54)
[2024-02-23 14:00] VITALS: BP 148/82; PULSE 73; RESP 18; TEMP 36.8; O2SAT 97
--- NOTE | 2024-02-23 14:19 | CON.PCM.UR_ITS ---
HPI Consult Data Date of Consult: 02/23/24 HPI Narrative Reason for Consultation: Continued pain after ureteroscopy and laser of stone HPI Narrative: NILS VERMA, is a 68 M who a few days ago took the surgery for a very difficult impacted stone in the proximal ureter at the time the plan was just to place a stent but was not able to get able to get a wire past the stone so I took the patient for surgery and had to go up there and lasered the stone I was extremely impacted stone all the way around. Very difficult impaction a lot of inflammation of the ureter, placed a stent at the time and then postop he was having some discomfort especially with urination this was kind of expected but then the discomfort just kept getting worse and also he had a very hard time urinating last night the nurse had to do a straight cath. Repeat CAT scan was done appropriately so I looked at it he does have kind of a distended bladder got a lot of inflammation on the ureter a lot of free fluid along the ureter and the kidney consistent with possible extravasation just from backing up and reflux hydro. So I placed the catheter and got about 500 cc of dark-colored urine out so I think the patient was retaining urine and his bladder was refluxing putting pressure in the kidney with a stent and then with the impacted stone probably some microperforations there were leaking. At this point I think will leave the catheter and will leave the stent in hopefully with this his creatinine will start to go down continue with hydration and this will let everything heal once his pain level goes back to an appropriate level and his creatinine resolves to a normal level then maybe the patient could be discharged home with a catheter I will continue to watch him with. For now we will leave the catheter in place since he was retaining urine and I think causing reflux and strain on that left kidney. On the CAT scan Tiny Fragment of the Distal Ureter That Are Passing but Nothing That Needs intervention. PFSH Medical History BPH (benign prostatic hyperplasia) CKD (chronic kidney disease), stage I History of nephrolithiasis Wears glasses Non-smoker Allergy/AdvReac Type Severity Reaction Status Date / Time diazepam (From Valium) Allergy Severe Anaphylaxis Verified 02/19/24 18:59 amoxicillin Allergy Intermediate Rash Verified 02/19/24 18:59 acetaminophen (From AdvReac Mild Nausea/Vom/ Verified 02/19/24 18:59 Darvocet-N) Diarrhea naproxen (From Naprosyn) AdvReac Mild Hives Verified 02/20/24 22:10 oxycodone (From Percocet) AdvReac Mild Nausea/Vom/ Verified 02/19/24 18:59 Diarrhea propoxyphene (From AdvReac Mild Nausea/Vom/ Verified 02/19/24 18:59 Darvocet-N) Diarrhea Family History Mother No problems noted. Father No problems noted. Family History no significant family his Surgical History History of umbilical hernia repair History of extraction of renal calculus History of appendectomy Social History household members: spouse Smoking Status: Never smoker alcohol intake: current alcohol intake frequency: holidays/special occasions only substance use type: does not use Lab / Micro Data 02/23/24 07:05 02/23/24 07:05 Labs: Laboratory Results - last 24 hr 02/23/24 07:05: WBC 8.5, RBC 3.77 L, Hgb 11.2 L, Hct 35.2 L, MCV 93.4, MCH 29.7, MCHC 31.8 L, RDW Std Deviation 43.6, RDW Coeff of Curtis 12.7, Plt Count 206, MPV 9.4, Immature Gran % (Auto) 0.500, Neut % (Auto) 78.2 H, Lymph % (Auto) 8.4 L, M sirisha % (Auto) 10.6 H, Eos % (Auto) 1.9, Baso % (Auto) 0.4, Absolute Neuts (auto) 6.7, Absolute Lymphs (auto) 0.71 L, Nucleated RBC % 0, Sodium 134 L, Potassium 3.7, Chloride 103, Carbon Dioxide 24.0, Anion Gap 7, BUN 30 H, Creatinine 2.23 H , Estim Creat Clear Calc 35.54, Est GFR (MDRD) Af Amer 38 L, Est GFR (MDRD) Non- Af 31 L, BUN/Creatinine Ratio 13.5, Glucose 98, Calcium 8.8 Micro: Microbiology 02/20/24 17:23 Blood Culture (Wb) - Anticubital Left Blood Culture - Preliminary No growth in 48 hours. 02/19/24 21:42 Urine, Clean Catch Urine Culture - Final Mixed Gram Positive Organisms Imaging Radiology Impression Abdomen/Pelvis CT 02/23/24 08:39 IMPRESSION: Moderate left retroperitoneal fluid collection with low attenuation and mild air, favoring postprocedural urinoma or even abscess over hematoma. Interval placement of left ureteral stent and probable lithotripsy with mild hydronephrosis and smaller 2-5 mm calculi in the distal ureter. Small nonobstructing right renal calculi. Bladder diverticulum containing calculi. Mildly prominent left scrotal vessels, possible varicocele. Mild left pleural effusion with left lower lobe atelectasis or pneumonia. Left inguinal hernia containing sigmoid colon without evidence for colonic obstruction. Mild hiatal hernia. Colonic diverticulosis without acute diverticulitis. Electronically Signed: Diana Dias MD at 9:55 EDT ,
[2024-02-23] MEDS: Acetaminophen 325 MG Tablet 650 MG PO (17:17)
[2024-02-23] MEDS: Lidocaine Jelly 2% 20 ML Syringe (URO-JET) 1 APPLIC TOPICAL (17:28)
[2024-02-23 20:46] VITALS: BP 159/79; PULSE 89; RESP 18; TEMP 36.6; O2SAT 96
[2024-02-23] MEDS: Ceftriaxone 1 GM/50 ML BAG IV (20:53)
[2024-02-23] MEDS: MELATONIN 3 MG TABLET PO (20:59)
[2024-02-24 02:37] VITALS: BP 156/77; PULSE 88; RESP 17; TEMP 37.2; O2SAT 96
[2024-02-24] MEDS: HYDROmorphone 1 MG/ML Syringe IV (02:39)
[2024-02-24 07:10] LABS: Absolute Lymphocyte Count 0.67 X10^3/uL (0.83-4.51); Absolute Neutrophil Count 4.9 X10^3/uL (2.0-7.7); Basophil# 0.02 X10^3/uL; Basophil% 0.3 % (0-1); Hematocrit 32.5 % (40-54); Hemoglobin 10.8 g/dL (13.0-16.5); Lymphocyte # 0.67 X10^3/ul (0.83-4.51); Lymphocyte % 10.2 % (19-41); Mean Corp Hgb Conc 33.2 g/dL (32-36); Mean Corpuscular Hgb 30.5 pg (27.0-32.0); Mean Corpuscular Volume 91.8 fL (80-94); Mean Platelet Vol. 9.1 fl (6.2-12.0); Monocyte# 0.77 X10^3/uL; Monocyte% 11.7 % (0-10); NRBC Flagged by Analyzer 0 % (0-5); Neutrophil % 74.2 % (47-70); Platelet Count 210 K/mm3 (150-450); RBC Distribution Width CV 12.4 % (11.6-14.6); RBC Distribution Width SD 41.9 fl (35.1-43.9); Red Blood Count 3.54 M/mm3 (4.6-6.2); White Blood Count 6.6 K/mm3 (4.4-11.0)
--- NOTE | 2024-02-24 07:46 | PCM.CONS.B ---
Consult Date of Consult: 02/24/24 Reason for Consult s/p laser of diff impacted stone, ct scan show some urinoma having pain on the left side, pain about the same today vidal placed yestuday and significant retentin, decompress system WBC normal, no fevers, no signs of abscess await BMP this am.
[2024-02-24 08:00] LABS: Anion Gap 7 (5-15); BUN 20 mg/dL (7-18); BUN/Creat Ratio 19.6 RATIO (10-20); Calcium,Total 8.6 mg/dL (8.5-10.1); Chloride 105 mmol/L (98-107); Creatinine, Serum 1.02 mg/dL (0.70-1.30); EST Glomerular Filtration Rate 77 mL/min (>60); Est Glom Filt Rate - Afr Amer 93 mL/min (>60); Glucose 102 mg/dL (74-106); Potassium 3.4 mmol/L (3.5-5.1); Sodium Level 137 mmol/L (136-145)
--- NOTE | 2024-02-24 08:37 | PN.HOSP_ITS ---
Reason for Visit Reason for Visit: Diagnoses Unspecified hydronephrosis (02/19/24) Calculus of kidney (02/19/24) Urinary tract infection, site not specified (02/19/24) Subjective Subjective Still with left-sided abdominal pain. Not relieved with tramadol nor acetaminophen. Objective Data Objective Data Vital Signs: Vital Signs Temp Pulse Resp BP Pulse Ox O2 Del Method O2 Flow Rate 37.2 C 88 17 156/77 H 96 Room Air 2 02/24/24 02:37 02/24/24 02:37 02/24/24 02:37 02/24/24 02:37 02/24/24 02:37 02/24/24 02:37 02/20/24 21:19 Oxygen Flow Rate (L/min) 2 Oxygen Delivery Method Room Air Weight: 94.3 kg Body Mass Index (BMI) 29.0 Intake & Output: Intake and Output for Last 24 Hours 02/22/24 02/23/24 02/24/24 23:59 23:59 23:59 Intake Total 3450 / 3450 4181.25 / 4181.25 1600 / 1600 Output Total 1325 / 1325 1475 / 1475 300 / 300 Balance 2125 / 2125 2706.25 / 2706.25 1300 / 1300 Lab / Micro Data 02/24/24 06:18 02/24/24 06:18 Labs: Laboratory Results - last 24 hr 02/23/24 07:05: Sodium 134 L, Potassium 3.7, Chloride 103, Carbon Dioxide 24.0, Anion Gap 7, BUN 30 H, Creatinine 2.23 H, Estim Creat Clear Calc 35.54, Est GFR (MDRD) Af Amer 38 L, Est GFR (MDRD) Non-Af 31 L, BUN/Creatinine Ratio 13.5, Glucose 98, Calcium 8.8 02/24/24 06:18: WBC 6.6, RBC 3.54 L, Hgb 10.8 L, Hct 32.5 L, MCV 91.8, MCH 30.5, MCHC 33.2, RDW Std Deviation 41.9, RDW Coeff of Curtis 12.4, Plt Count 210, MPV 9.1, Immature Gran % (Auto) 0.600, Neut % (Auto) 74.2 H, Lymph % (Auto) 10.2 L, [place] % (Auto) 11.7 H, Eos % (Auto) 3.0, Baso % (Auto) 0.3, Absolute Neuts (auto) 4.9, Absolute Lymphs (auto) 0.67 L, Nucleated RBC % 0, Sodium 137, Potassium 3.4 L, Chloride 105, Carbon Dioxide 25.0, Anion Gap 7, BUN 20 H, Creatinine 1.02, Estim Creat Clear Calc 77.70, Est GFR (MDRD) Af Amer 93, Est GFR (MDRD) Non-Af 77, BUN/Creatinine Ratio 19.6, Glucose 102, Calcium 8.6 Micro: Microbiology 02/20/24 17:23 Blood Culture (Wb) - Anticubital Left Blood Culture - Preliminary No growth in 48 hours. 02/19/24 21:42 Urine, Clean Catch Urine Culture - Final Mixed Gram Positive Organisms Radiography Diagnostic Testing: Radiology Impression Abdomen/Pelvis CT 02/23/24 08:39 IMPRESSION: Moderate left retroperitoneal fluid collection with low attenuation and mild air, favoring postprocedural urinoma or even abscess over hematoma. Interval placement of left ureteral stent and probable lithotripsy with mild hydronephrosis and smaller 2-5 mm calculi in the distal ureter. Small nonobstructing right renal calculi. Bladder diverticulum containing calculi. Mildly prominent left scrotal vessels, possible varicocele. Mild left pleural effusion with left lower lobe atelectasis or pneumonia. Left inguinal hernia containing sigmoid colon without evidence for colonic obstruction. Mild hiatal hernia. Colonic diverticulosis without acute diverticulitis. Electronically Signed: Diana Dias MD at 9:55 EDT , Physical Exam Const alert Constitutional Narrative: Up in bed lying on his right side. Wincing in pain when he tries moving. HEENT head/scalp atraumatic and moist oral mucous membranes Resp normal respiratory effort, no retractions, no use of accessory muscles and clear to auscultation bilaterally Cardio regular rate, regular rhythm, S1 normal heart sound and S2 normal heart sound GI GI Narrative: Left flank pain. Neuro Sensorium / Orientation: awake and alert Psych affect normal Assessment & Plan Assessment/Plan (1) Hydroureteronephrosis: PLAN: Left sided. Measuring 0.7cm on 02/18. Pt underwent cystoscopy and left ureteroscopy laser stone and left stent placement on the . Repeat CT on carmelita showed moderate left retroperitoneal fluid collection with low attenuation and mild air, favoring postprocedural urinoma v abscess v hematoma. concerned about urinary retention and placed catheter UA banal and UCx showed mixed organisms. Given the possibility of an abscess (unlikely) will continue with abx (CTX) for now. Still with left-sided flank pain. Will change his pain medication to hydromorphone oral. PLAN: Plan Chronic conditions: * BPH: tamsulosin BID VTE prophylaxis: enoxaparin. Charges/Coding Visit Charges Inpatient E&M: 38299 Subs Hosp L2
[2024-02-24 10:13] VITALS: BP 156/76; PULSE 91; RESP 18; TEMP 36.2; O2SAT 96
[2024-02-24] MEDS: Tamsulosin HCl 0.4 MG Capsule PO ×2 (10:17→21:50)
[2024-02-24] MEDS: Famotidine 20 MG Tablet PO ×2 (10:17→21:50)
[2024-02-24] MEDS: traMADol 50 MG Tablet 100 MG PO (10:18)
[2024-02-24] MEDS: HYDROmorphone 2 MG TABLET PO ×2 (14:06→21:50)
[2024-02-24 15:00] VITALS: BP 147/75; PULSE 78; RESP 18; TEMP 36.4; O2SAT 95
--- NOTE | 2024-02-24 16:30 | CHAPLAIN ---
Type of Pastoral Visit _x__ Initial Visit ___ Follow-up Visit ___ On-call Visit ___ General Patient Visit ___ Spiritual Assessment ___ Family Conference ___ Bereavement ___ Rapid Response ___ Code Blue ___ Other (describe below) Pastoral Care Referral From _x__ Patient ___ Family ___ Nurse ___ Physician ___ Revenue Inspector ___ Chefs ___ Other (describe below) Sacrament/Intervention _x__ Active listening ___ Anointing ___ Judaism ___ Bereavement ___ Communion ___ Amee exploration ___ ___ Life review _x__ Prayer ___ Reconciliation ___ Sacrament of Sick ___ Supportive presence ___ Wedding ___ Other (describe below) Pastoral Comments patient is positive about his experience and outcome; pt reports answers that are good; pt welcomes a prayer but has no other needs
[2024-02-24 21:47] VITALS: BP 152/74; PULSE 72; RESP 16; TEMP 36.8; O2SAT 98
[2024-02-24] MEDS: Ceftriaxone 1 GM/50 ML BAG IV (21:51)
[2024-02-25 03:11] VITALS: BMI 28.8
[2024-02-25] MEDS: HYDROmorphone 2 MG TABLET PO ×2 (04:20→13:30)
[2024-02-25 04:22] VITALS: BP 149/74; PULSE 72; RESP 16; TEMP 37.1; O2SAT 98
[2024-02-25 06:36] LABS: Absolute Lymphocyte Count 1.04 X10^3/uL (0.83-4.51); Absolute Neutrophil Count 4.3 X10^3/uL (2.0-7.7); Basophil# 0.04 X10^3/uL; Basophil% 0.6 % (0-1); Eosinophil# 0.27 X10^3/uL; Eosinophils% 4.2 % (0-5); Hematocrit 32.3 % (40-54); Hemoglobin 10.4 g/dL (13.0-16.5); Lymphocyte # 1.04 X10^3/ul (0.83-4.51); Lymphocyte % 16.3 % (19-41); Mean Corp Hgb Conc 32.2 g/dL (32-36); Mean Corpuscular Hgb 29.5 pg (27.0-32.0); Mean Corpuscular Volume 91.5 fL (80-94); Mean Platelet Vol. 9.1 fl (6.2-12.0); Monocyte# 0.67 X10^3/uL; Monocyte% 10.5 % (0-10); NRBC Flagged by Analyzer 0 % (0-5); Neutrophil # 4.31 X10^3/uL (2.7-7.7); Neutrophil % 67.6 % (47-70); Platelet Count 225 K/mm3 (150-450); RBC Distribution Width CV 12.5 % (11.6-14.6); RBC Distribution Width SD 41.7 fl (35.1-43.9); Red Blood Count 3.53 M/mm3 (4.6-6.2); White Blood Count 6.4 K/mm3 (4.4-11.0)
[2024-02-25 07:14] LABS: Anion Gap 4 (5-15); BUN 13 mg/dL (7-18); BUN/Creat Ratio 20.2 RATIO (10-20); Calcium,Total 8.5 mg/dL (8.5-10.1); Chloride 106 mmol/L (98-107); Creatinine, Serum 0.64 mg/dL (0.70-1.30); EST Glomerular Filtration Rate 130 mL/min (>60); Est Glom Filt Rate - Afr Amer 158 mL/min (>60); Estimated Creatinine Clearance 98.73 ml/min; Glucose 103 mg/dL (74-106); Potassium 3.3 mmol/L (3.5-5.1); Sodium Level 140 mmol/L (136-145)
--- NOTE | 2024-02-25 07:22 | PCM.CONS.B ---
Consult Date of Consult: 02/25/24 Reason for Consult wbc normal, CR is normal doing better w ricky, pain still rated 6/ 10 but after treatment pt sleeping well can go home w young once pain under control follow up next week in my office to tamanna garcía i need to leave stent in for 3 weeks to let ureter heal, he eill be psinful w stent, poorly tolerates pain
--- NOTE | 2024-02-25 07:47 | PN.HOSP_ITS ---
Reason for Visit Reason for Visit: Diagnoses Unspecified hydronephrosis (02/19/24) Calculus of kidney (02/19/24) Urinary tract infection, site not specified (02/19/24) Subjective Subjective Still with flank pain. Objective Data Objective Data Vital Signs: Vital Signs Temp Pulse Resp BP Pulse Ox O2 Del Method O2 Flow Rate 37.1 C 72 16 149/74 H 98 Room Air 2 02/25/24 04:22 02/25/24 04:22 02/25/24 04:22 02/25/24 04:22 02/25/24 04:22 02/25/24 04:22 02/20/24 21:19 Oxygen Flow Rate (L/min) 2 Oxygen Delivery Method Room Air Weight: 93.6 kg Body Mass Index (BMI) 28.8 Intake & Output: Intake and Output for Last 24 Hours 02/23/24 02/24/24 02/25/24 23:59 23:59 23:59 Intake Total 4181.25 / 4181.25 2130 / 2430 300 / 300 Output Total 1475 / 1475 2250 / 2250 650 / 650 Balance 2706.25 / 2706.25 -120 / 180 -350 / -350 Lab / Micro Data 02/25/24 06:01 02/25/24 06:01 Labs: Laboratory Results - last 24 hr 02/24/24 06:18: Sodium 137, Potassium 3.4 L, Chloride 105, Carbon Dioxide 25.0, Anion Gap 7, BUN 20 H, Creatinine 1.02, Estim Creat Clear Calc 77.70, Est GFR (MDRD) Af Amer 93, Est GFR (MDRD) Non-Af 77, BUN/Creatinine Ratio 19.6, Glucose 102, Calcium 8.6 02/25/24 06:01: WBC 6.4, RBC 3.53 L, Hgb 10.4 L, Hct 32.3 L, MCV 91.5, MCH 29.5, MCHC 32.2, RDW Std Deviation 41.7, RDW Coeff of Curtis 12.5, Plt Count 225, MPV 9.1, Immature Gran % (Auto) 0.800, Neut % (Auto) 67.6, Lymph % (Auto) 16.3 L, M sirisha % (Auto) 10.5 H, Eos % (Auto) 4.2, Baso % (Auto) 0.6, Absolute Neuts (auto) 4.3, Absolute Lymphs (auto) 1.04, Nucleated RBC % 0, Sodium 140, Potassium 3.3 L , Chloride 106, Carbon Dioxide 30.0, Anion Gap 4 L, BUN 13, Creatinine 0.64 L, Estim Creat Clear Calc 98.73, Est GFR (MDRD) Af Amer 158, Est GFR (MDRD) Non-Af 130, BUN/Creatinine Ratio 20.2 H, Glucose 103, Calcium 8.5 Micro: Microbiology 02/20/24 17:23 Blood Culture (Wb) - Anticubital Left Blood Culture - Preliminary No growth in 48 hours. 02/19/24 21:42 Urine, Clean Catch Urine Culture - Final Mixed Gram Positive Organisms Physical Exam Const alert and no apparent distress Constitutional Narrative: up ambulating without difficulty. HEENT head/scalp atraumatic and moist oral mucous membranes Resp normal respiratory effort and no retractions Neuro Sensorium / Orientation: awake and alert Assessment & Plan Assessment/Plan (1) Hydroureteronephrosis: PLAN: Left sided. Measuring 0.7cm on 02/18. Pt underwent cystoscopy and left ureteroscopy laser stone and left stent placement on the . Repeat CT on carmelita showed moderate left retroperitoneal fluid collection with low attenuation and mild air, favoring postprocedural urinoma v abscess v hematoma. concerned about urinary retention and placed catheter UA banal and UCx showed mixed organisms. DC abx. Still with left-sided flank pain. Will change his pain medication to hydromorphone oral. Per , patient to be d/c'd with catheter, follow up in office in 1 week to have vidal removed, retrieve stent in 3 weeks. PLAN: Plan Chronic conditions: * BPH with urinary retention: catheter placed. continue tamsulosin BID. VTE prophylaxis: enoxaparin. DC home.
--- NOTE | 2024-02-25 07:49 | DCINST_ITS ---
Discharge Instructions Diet Discharge Diet: No restrictions Activity Discharge Activity: Return to Normal Activity and May Not Drive (while taking narcotic pain medications.) Dressing / Incision Call your doctor if you observe: Fever of 101 or Higher Follow Up Care Please Follow Up With: Matthew Shukla MD When: Call [phone] for an appointment, get appt next saturday am to d/c vidal Test Results: Test results from this visit will be discussed in further detail at your follow- up appointment, if applicable. Discharge Plan Admission Admit Date/Time: 02/19/24 23:44 Attending Provider: Davey Rose Primary Care Provider: Care Physician,No Primary Consulting Providers: Matthew Shukla; Nafisa Sullivan; Alina Morales Discharge Orders/Prescriptions Prescriptions: New tamsulosin [Flomax] 0.4 mg capsule 0.4 mg PO BID 30 Days Qty: 60 0RF Referrals / Follow Up: Matthew Shukla MD [Med Staff - Active Staff] - Care Physician,No Primary [Primary Care Provider] -
[2024-02-25] MEDS: Tamsulosin HCl 0.4 MG Capsule PO (09:33)
[2024-02-25] MEDS: Famotidine 20 MG Tablet PO (09:33)
[2024-02-25 10:00] VITALS: BP 155/85; PULSE 69; RESP 18; TEMP 37; O2SAT 96
--- NOTE | 2024-02-25 11:01 | CASEMGMT ---
RN CM into pt room, pt aware he may dc home with the vidal. Pt states he is not happy about it but feels he can manage it at home. He is aware that his nurse will provide education to him regarding it. Spoke with hospitalist who will review to see if pt will dc today. Pt aware.
--- NOTE | 2024-02-25 11:37 | DS.PCM_ITS ---
Providers Date of Admission: 02/19/24 Primary Care Physician: Myla Primary Care Phys Consultations 02/20/24 01:16 Consult: Urology Routine Consulting Provider: Matthew Shukla Reason for Consult: mild left hydroureteronephrosis with 0.7 cm proximal ureteral calculus EMERGENT Consult: No MD Notified: Yes Date Notified: 02/19/24 Time Notified: 23:44 Method of Notification: ED Physician Initiated Reason For Visit: COMPLICATED UTI MILD HYDROURETERNEPHROSIS Diagnosis Discharge Diagnosis (1) Hydroureteronephrosis: Status: Acute Code(s): N13.30 - Unspecified hydronephrosis Plan: Left sided. Measuring 0.7cm on 02/18. Pt underwent cystoscopy and left ureteroscopy laser stone and left stent placement on the . Repeat CT on carmelita showed moderate left retroperitoneal fluid collection with low attenuation and mild air, favoring postprocedural urinoma v abscess v hematoma. concerned about urinary retention and placed catheter UA banal and UCx showed mixed organisms. DC abx. Still with left-sided flank pain. Will change his pain medication to hydromorphone oral. Per , patient to be d/c'd with catheter, follow up in office in 1 week to have vidal removed, retrieve stent in 3 weeks. Plan Chronic conditions: * BPH with urinary retention: catheter placed. continue tamsulosin BID. VTE prophylaxis: enoxaparin. DC home. Medications at Discharge Home Medications hydromorphone 2 mg tablet 2 mg PO Q6H PRN pain (scale score 7-10) 3 days #12 tabs 02/25/24 tamsulosin 0.4 mg capsule (Flomax) 0.4 mg PO BID 30 days #60 caps 02/25/24 Hospital Course Operations - (cystoscopy) Weight / BMI Weight Weight: 93.6 kg Body Mass Index (BMI) 28.8 ABG / Lab / Microbiology Data 02/25/24 06:01 02/25/24 06:01 Laboratory: Laboratory Results - last 24 hr 02/25/24 06:01: WBC 6.4, RBC 3.53 L, Hgb 10.4 L, Hct 32.3 L, MCV 91.5, MCH 29.5, MCHC 32.2, RDW Std Deviation 41.7, RDW Coeff of Curtis 12.5, Plt Count 225, MPV 9.1, Immature Gran % (Auto) 0.800, Neut % (Auto) 67.6, Lymph % (Auto) 16.3 L, M sirisha % (Auto) 10.5 H, Eos % (Auto) 4.2, Baso % (Auto) 0.6, Absolute Neuts (auto) 4.3, Absolute Lymphs (auto) 1.04, Nucleated RBC % 0, Sodium 140, Potassium 3.3 L , Chloride 106, Carbon Dioxide 30.0, Anion Gap 4 L, BUN 13, Creatinine 0.64 L, Estim Creat Clear Calc 98.73, Est GFR (MDRD) Af Amer 158, Est GFR (MDRD) Non-Af 130, BUN/Creatinine Ratio 20.2 H, Glucose 103, Calcium 8.5 Microbiology: Microbiology 02/20/24 17:23 Blood Culture (Wb) - Anticubital Left Blood Culture - Preliminary No growth in 48 hours. 02/19/24 21:42 Urine, Clean Catch Urine Culture - Final Mixed Gram Positive Organisms D/C Instructions Discharge Diet: No restrictions Call your doctor if you observe: Fever of 101 or Higher Please Follow Up With: Matthew Shukla MD When: Call [phone] for an appointment, get appt next saturday am to d/c young Meaningful Use Info Meaningful Use Meaningful Use Diagnoses (Choose all that apply): None applicable Ischemic Stroke Statin Dosing Therapy Reference: STATIN DOSE THERAPY REFERENCE: * Patients > 75 years receive moderate or high dose statin therapy. * Patients 75 years or YOUNGER should receive HIGH intensity statin dose unless contraindicated. You will be required to document reason for non-treatment if statin daily dose does not meet guidelines. HIGH DOSE STATIN THERAPY DAILY Atorvastatin > than or = to 40 mg Rosuvastatin > than or = to 20 mg Amlodipine + Atorvastatin > than or = to 2.5/40 mg Ezetimibe + Simvastatin 10/80 mg Simvastatin 80mg Discharge Plan Admission Admit Date/Time: 02/19/24 23:44 Primary Reason for Your Visit: hydronephrosis. Attending Provider: Davey Rose Primary Care Provider: Care Physician,No Primary Consulting Providers: Matthew Shukla; Nafisa Sullivan; Alina Morales Discharge Orders/Prescriptions Prescriptions: New tamsulosin [Flomax] 0.4 mg capsule 0.4 mg PO BID 30 Days Qty: 60 0RF hydromorphone 2 mg Tablet 2 mg PO Q6H PRN (Reason: pain (scale score 7-10)) 3 Days Qty: 12 0RF Referrals / Follow Up: Matthew Shukla MD [Med Staff - Active Staff] - Within 1 Week Care Physician,No Primary [Primary Care Provider] - Disposition Disposition (needs filled in before D/C Order can be placed): Home, Self Care Charges/Coding Visit Charges Inpatient E&M: 22567 Disch Hosp
[2024-02-25 13:24] VITALS: BP 149/79; PULSE 73; RESP 18; TEMP 36.6; O2SAT 98
--- NOTE | 2024-02-25 16:34 | PHA.DC.MR.R ---
Pharmacy [place] Med Reconciliation Pharmacy Service has performed discharge medication reconciliation for this patient. Medication education papers prepared, patient discharged before I was able to child care counselor. Medications reviewed. The patient's discharge medication list was reviewed for discrepancies and discrepancies were resolved. Medications at Discharge Home Medications hydromorphone 2 mg tablet 2 mg PO Q6H PRN pain (scale score 7-10) 3 days #12 tabs 02/25/24 tamsulosin 0.4 mg capsule (Flomax) 0.4 mg PO BID 30 days #60 caps 02/25/24
== END 2024-02-25 13:50 | disposition home or self-care (01) | DRG 661 ==
LOC: ED 23:27 → MS3 02-20 01:10
PROVIDERS: Student in an Organized Health Care Education/Training Program; Urology; Admitting Provider Family Medicine; Emergency Provider Emergency Medicine
PROC: 0T778DZ Dilation of Left Ureter with Intraluminal Device, Via Natural or Artificial Opening Endoscopic (ICD-10-PCS; CPT 52332; principal; 2024-02-20 10:50)
DX: N13.6 Pyonephrosis (principal); N40.1 Benign prostatic hyperplasia with lower urinary tract symptoms; R33.8 Other retention of urine; R03.0 Elevated blood-pressure reading, without diagnosis of hypertension; Z66 Do not resuscitate; Z87.442 Personal history of urinary calculi
CPT/HCPCS: 36415; 74176; 76000; 80048; 80053; 81001; 85025; 87040; 87086; 87088; 93005; 94668; 99285; J7030; A4216; C1769; C2617; J2405